=== PATIENT | male | born 1940 | race Two or more races ===

== ENCOUNTER 2021-11-03 21:43 | Inpatient (IN) | payer OTHER ==
[~2021-11-03] VITALS: Ht 167.6 cm; Wt 68.9 kg
--- NOTE | 2021-11-03 21:50 | NUR ---
EMT AT BEDSIDE FOR EKG.
--- NOTE | 2021-11-03 21:55 | NUR ---
MRSA SWAB COLLECTED AND SENT TO LAB.
--- NOTE | 2021-11-03 21:55 | NUR ---
PATIENT'S BELONGINGS LIST DONE.
--- NOTE | 2021-11-03 21:55 | NUR ---
[id number]. MORE ALTERED THAT USUAL PER FAMILY. NOTED 102.7 FEVER ON HD, LAST SESSION TODAY. REPORTED 89% ON RA. PATIENT PLACED IN BED 06 ON MONITOR AND POX. PATIENT ON NASAL CANULA 4L.
[2021-11-03] MEDS ORDERED: ACETAMINOPHEN ES 500 MG TABLET PO ONE (22:00)
[2021-11-03] MEDS ORDERED: PIPERACILLIN /TAZOBACTAM 3.375 G in IV D5W 50 ML IV ONE (22:00)
[2021-11-03] MEDS ORDERED: VANCOMYCIN 1 GM in IV D5W 250 ML IV ONE (22:00)
[2021-11-03] MEDS ORDERED: IV NS 0.9% 500 ML BAG IV ONE (22:00)
[2021-11-03] MEDS ORDERED: ACETAMINOPHEN ES 500 MG TABLET ONE ×2 (22:00→22:02)
[2021-11-03] MEDS ORDERED: PIPERACILLIN /TAZOBACTAM 3.375 G VIAL IV ONE (22:02)
[2021-11-03] MEDS ORDERED: VANCOMYCIN 1 GM VIAL ONE (22:02)
--- NOTE | 2021-11-03 22:12 | NUR ---
BLOOD AND CULTURES DONE AND SENT TO LAB
--- NOTE | 2021-11-03 22:41 | NUR ---
PT KEPT COMFORTABLE. VSS. TEMP RECHECKED 101, COOLING MEASURES APPLIED AGAIN.
[2021-11-03 22:42] LABS: LYMPHOCYTES # (AUTO) 0.3 K/uL (0.8-4.8); MONOCYTES # (AUTO) 0.4 K/uL (0.1-1.30); PLATELET COUNT (AUTO) 82 K/uL (150-450)
[2021-11-03 22:51] LABS: BASOPHILS % (AUTO) 0.1 % (0.0-2.0); EOSINOPHILS % (AUTO) 0.3 % (0.0-6.0); HEMATOCRIT 30 % (39-51); LYMPHOCYTES % (AUTO) 8.2 % (20.0-44.0); MEAN CORPUSCULAR HGB CONC 34 g/dl (31.0-36.0); MEAN CORPUSCULAR VOLUME 94 fL (80-96); MONOCYTES % (AUTO) 10.7 % (2.0-12.0); NEUTROPHILS % (AUTO) 80.7 % (43.0-81.0); WHITE BLOOD COUNT (AUTO) 3.8 K/uL (4.3-11.0)
[2021-11-03 23:03] LABS: CALCIUM, SERUM 9.4 mg/dL (8.5-10.1); CARBON DIOXIDE 33 mmol/L (21-32); CHLORIDE 98 mmol/L (98-107); CREATININE 4.7 mg/dL (0.6-1.3); GLUCOSE 191 mg/dL (74-106); POTASSIUM 3.2 mmol/L (3.5-5.1); SODIUM SERUM 137 mmol/L (136-145); UREA NITROGEN, BLOOD 19 mg/dL (7-18)
[2021-11-03 23:15] LABS: ALANINE AMINOTRANSFERASE 28 U/L (12-78); ALBUMIN 2.9 g/dL (3.4-5.0); ALKALINE PHOSPHATASE 131 U/L (46-116); ASPARTATE AMINOTRANSFERASE 49 U/L (15-37); BILIRUBIN,DIRECT 0.6 mg/dL (0.0-0.2); BILIRUBIN,TOTAL 1.2 mg/dL (0.2-1.0); TOTAL PROTEIN, SERUM 6.2 g/dL (6.4-8.2)
[2021-11-04] MEDS ORDERED: Z GUARD REMEDY 4 OZ OINT TP PRN
[2021-11-04] MEDS ORDERED: ZOLPIDEM TARTRATE 5 MG TABLET PO PRN
[2021-11-04] MEDS ORDERED: ACETAMINOPHEN 325 MG TABLET PO PRN
[2021-11-04] MEDS ORDERED: MAG HYDROX/AL HYDROX/SIMETH 30 ML UDC PO PRN
[2021-11-04] MEDS ORDERED: IV 1/2NS 1000 ML 1,000 ML IV PRN
[2021-11-04] MEDS ORDERED: ONDANSETRON HCL/PF 4 MG/2 ML VIAL IVP PRN
[2021-11-04] MEDS ORDERED: MAGNESIUM HYDROXIDE 30 ML UDC PO PRN
[2021-11-04 04:32] LABS: BASOPHILS % (AUTO) 0.3 % (0.0-2.0); EOSINOPHILS % (AUTO) 0.1 % (0.0-6.0); HEMATOCRIT 31 % (39-51); HEMOGLOBIN 10.1 g/dL (13.5-17.5); LYMPHOCYTES # (AUTO) 0.7 K/uL (0.8-4.8); LYMPHOCYTES % (AUTO) 16.2 % (20.0-44.0); MEAN CORPUSCULAR HGB CONC 33 g/dl (31.0-36.0); MEAN CORPUSCULAR VOLUME 94 fL (80-96); MONOCYTES # (AUTO) 0.6 K/uL (0.1-1.30); MONOCYTES % (AUTO) 15.6 % (2.0-12.0); NEUTROPHILS # (AUTO) 2.8 K/uL (1.8-8.9); NEUTROPHILS % (AUTO) 67.8 % (43.0-81.0); PLATELET COUNT (AUTO) 83 K/uL (150-450); RED BLOOD CELL COUNT(AUTO) 3.25 MIL/uL (4.5-6.0); WHITE BLOOD COUNT (AUTO) 4.1 K/uL (4.3-11.0)
[2021-11-04 04:52] LABS: CALCIUM, SERUM 8.9 mg/dL (8.5-10.1); CARBON DIOXIDE 30 mmol/L (21-32); CHLORIDE 100 mmol/L (98-107); CREATININE 5.1 mg/dL (0.6-1.3); GLUCOSE 132 mg/dL (74-106); MAGNESIUM 2.5 mg/dL (1.8-2.4); PHOSPHORUS 3.9 mg/dL (2.5-4.9); POTASSIUM 3.2 mmol/L (3.5-5.1); SODIUM SERUM 136 mmol/L (136-145); UREA NITROGEN, BLOOD 22 mg/dL (7-18)
[2021-11-04] MEDS ORDERED: ZOSYN IVPB 2.25 G in IV D5W 50ml IV ONE (05:00)
[2021-11-04 05:03] LABS: THYROID STIMULATING HORMONE 1.744 uIU/mL (0.358-3.74)
--- NOTE | 2021-11-04 05:07 | NUR ---
TROP 2.708
--- NOTE | 2021-11-04 05:13 | NUR ---
PAGED DR QUIROGA TO RELAY THE HIGH TROPONIN
[2021-11-04] MEDS ORDERED: HEPARIN INFUSION/D5W 500 ML IV ONE (05:28)
[2021-11-04] MEDS ORDERED: HEPARIN SODIUM, PORCINE 5000 UNITS/1 ML VIAL ONE (05:34)
[2021-11-04] MEDS: HEPARIN INFUSION/D5W 500 ML IV PRN ×2 (05:45→18:32)
[2021-11-04] MEDS ORDERED: PIPERACILLIN /TAZOBACTAM 2.25 G VIAL IV ONE (05:59)
[2021-11-04] MEDS ORDERED: HEPARIN SODIUM,PORCINE/PF 50 UNIT/5 ML DISP.SYRIN IV ONE (06:00)
--- NOTE | 2021-11-04 06:04 | NUR ---
BED 114-2
--- NOTE | 2021-11-04 07:41 | NUR ---
REPORT GIVEN TO NURSE IZAGUIRRE FOR MERCEDES
--- NOTE | 2021-11-04 08:30 | NUR ---
SPOKE TO DAUGHTER KALEB [phone]
--- NOTE | 2021-11-04 08:30 | NUR ---
THE PATIENT IS TRANSFERED TO ROOM 114-2 IN STABLE CONDITION AND PER ACLS POLICY
[2021-11-04] MEDS ORDERED: VANCOMYCIN 500 MG in IV D5W 100 ML IV PRN (09:00)
[2021-11-04] MEDS ORDERED: CARV12.52 PO (09:01)
[2021-11-04] MEDS ORDERED: AMLO-213 PO (09:01)
[2021-11-04] MEDS ORDERED: LOVA40TA2 PO (09:01)
[2021-11-04] MEDS ORDERED: BRIM5DRO3 EACHEYE (09:01)
[2021-11-04] MEDS ORDERED: DONE5TAB34 PO (09:01)
[2021-11-04] MEDS ORDERED: MIRT-91 PO (09:01)
[2021-11-04] MEDS ORDERED: INSU100I30 SQ ×2 (09:01)
[2021-11-04] MEDS ORDERED: DORZ10DR10 EACHEYE (09:01)
[2021-11-04] MEDS ORDERED: LOSA50TA39 PO (09:01)
[2021-11-04] MEDS ORDERED: BIMA2.5D5 EACHEYE (09:01)
[2021-11-04] MEDS ORDERED: HYDR-4077 PO (09:01)
[2021-11-04] MEDS ORDERED: APIX2.5T PO (09:01)
[2021-11-04 09:06] LABS: BAND % (MANUAL) 10 % (0.0-5.0); LYMPHOCYTES % (MANUAL) 6 % (16-48); MONOCYTES % (MANUAL) 11 % (0-11.0); NEUTROPHILS % (MANUAL) 73 (42-76)
[2021-11-04 09:15] LABS: BAND % (MANUAL) 12 % (0.0-5.0); LYMPHOCYTES % (MANUAL) 11 % (16-48); NEUTROPHILS % (MANUAL) 62 (42-76)
[2021-11-04 09:16] LABS: EOSINOPHILS % (MANUAL) 1 % (0-4); MONOCYTES % (MANUAL) 14 % (0-11.0)
[2021-11-04] MEDS: PANTOPRAZOLE 40 MG TABLET.DR PO SCH (09:26)
[2021-11-04] MEDS: DEXAMETHASONE SOD PHOSPHATE 10 MG/ML VIAL IV SCH (09:26)
[2021-11-04] MEDS: ASPIRIN EC 81 MG TABLET.DR PO SCH (09:26)
[2021-11-04 12:00] VITALS: BP 117/66
--- NOTE | 2021-11-04 12:21 | NUR ---
ADMISSION NOTES PT CAME FROM ER. PT IS A/O X 1, CONFUSED, HISTORY OF CKD, DEMENTIA AND ANXIETY. PT CAME TO UNIT AT APPROXIMATELY 0900. PT ON RA SATING 95%. NO SIGNS OF LABORED BREATHING. PT ON HEPARIN DRIP. IV ACCESS AT L WRIST 18G, AND L AC 18G. ALL ISOLATION PRECAUTIONS IN PLACE. ALL SAFETY MEASURES IN PLACE. BED IN LOWEST LOCKED POSITION, SIDE RAILS UP X 3, CALL LIGHT WITHIN REACH. WILL CONTINUE TO MONITOR THROUGHOUT SHIFT.
--- NOTE | 2021-11-04 12:30 | NUR ---
RN NOTE DR. CHANG NOTIFIED FOR PTT REDRAW, CONTINUE HEPARIN DRIP AT CURRENT DOSE UNTIL PTT REDRAW RESULT RESULTED.
[2021-11-04] MEDS ORDERED: PIPERACILLIN /TAZOBACTAM 2.25 G in IV D5W 50 ML IV SCH (13:00)
--- NOTE | 2021-11-04 15:58 | NUR ---
RN NOTES HLED HEPARIN PER MD ORDER. WILL CHECK PTT AT 1700. WILL RESTART HEPARIN PER PROTOCOL.
[2021-11-04 16:00] VITALS: BP 111/33
[2021-11-04] MEDS: hydrALAZINE HCL 50 MG TABLET PO SCH (17:00)
[2021-11-04] MEDS: CARVEDILOL 12.5 MG TABLET PO SCH (17:00)
[2021-11-04] MEDS: DORZOLAMIDE OPTH 2% 10 ML BOTTLE EACHEYE SCH (17:49)
[2021-11-04] MEDS: BRIMONIDINE TARTRATE OPHT SOLN 5 ML BOTTLE EACHEYE SCH (17:49)
[2021-11-04] MEDS: ATORVASTATIN 10 MG TABLET PO SCH (17:54)
[2021-11-04] MEDS ORDERED: CEFEPIME 2 GM in IV D5W 100 ML IV ONE (18:00)
[2021-11-04] MEDS: INSULIN GLARGINE, 100 UNIT/ML CARTRIDGE SQ SCH (18:09)
--- NOTE | 2021-11-04 18:37 | NUR ---
RN NOTE PTT OF 49.0, DECREASE DOSE BY 200UNIT/HR, AND PTT AFTER 6 HRS.
--- NOTE | 2021-11-04 19:27 | NUR ---
RN CLOSING NOTES PT IS RESTING IN BED, NO SIGNS OF DISTRESS OR SOB. PT IS A/O X 2-3. IV ACCESS ON LA AC AND L WRIST FLUSHING WELL AND PATENT. ALL SAFETY MEASURES IN PLACE, BED IN LOWEST LOCKED POSITION, SIDE RAILS UP X3, CALL LIGHT WITHIN REACH. WILL ENDORSE TO GAS APPLIANCE SERVICER NURSE FOR MERCEDES.
--- NOTE | 2021-11-04 19:55 | NUR ---
RN OPENING NOTES PT IS RESTING IN BED, NO SIGNS OF DISTRESS OR SOB. PT IS A/O X 2-3. IV ACCESS ON LA AC AND L WRIST FLUSHING WELL AND PATENT. PATIENT ON TELE MONITOR HR OF 60 SR. PATIENT ON O2 3L VIA NC SAT 100. PATIENT ON HEPARIN DRIP, RUNNING 844 UNITS/HR. NEXT LAB DRAW FOR APPT IS SCHEDULED AT 0100. WILL CONTINUE TO MONITOR PATIENT ON DRIP. ALL SAFETY MEASURES IN PLACE, BED IN LOWEST LOCKED POSITION, SIDE RAILS UP X3, CALL LIGHT WITHIN REACH.
[2021-11-04 20:00] VITALS: BP 128/34
[2021-11-04] MEDS: MIRTAZAPINE 15 MG TABLET PO SCH (21:45)
[2021-11-04] MEDS: LATANOPROST EYE DROP 0.005% 2.5 ML BOTTLE OP SCH (21:46)
[2021-11-05] VITALS: BP 134/64
--- NOTE | 2021-11-05 02:19 | NUR ---
MADAN FAIR FROM LAB CALLED TO REPORT A CRITICAL LAB VALUE OF 82.6 FOR APTT. PER PROTOCOL WILL HOLD HEPARIN DRIP FOR 30 MINS, AND WILL DECREASE THE INFUSION RATE BY 150 UNITS/HR.
--- NOTE | 2021-11-05 03:00 | NUR ---
RN NOTE HEPARIN STARTED AGAIN PER PROTOCOL AT A NEW RATE OF 727 . WENT DOWN 150UNITS FROM PREVIOUS APPT DRAW PER PROTOCOL. NEW LABS ORDERED FOR 0900.
--- NOTE | 2021-11-05 03:05 | NUR ---
RN NOTE NEW PTT ORDER PUT IN FOR 0900.
[2021-11-05 04:00] VITALS: BP 156/75
--- NOTE | 2021-11-05 07:00 | NUR ---
RN NOTE PATIENT KEPT DRY AND CLEAN , NO SIG CHANGES THROUGHOUT THE NIGHT. PATIENTS HEPARIN DRIP RUNNING AT 722 UNITS/HR AT THIS TIME. ENDORSED PLAN OF CARE TO AM NURSE.
[2021-11-05 07:25] LABS: BASOPHILS % (AUTO) 0.1 % (0.0-2.0); HEMATOCRIT 32 % (39-51); HEMOGLOBIN 10.7 g/dL (13.5-17.5); LYMPHOCYTES # (AUTO) 0.7 K/uL (0.8-4.8); LYMPHOCYTES % (AUTO) 9.5 % (20.0-44.0); MEAN CORPUSCULAR HGB CONC 33 g/dl (31.0-36.0); MEAN CORPUSCULAR VOLUME 94 fL (80-96); MONOCYTES # (AUTO) 0.7 K/uL (0.1-1.30); MONOCYTES % (AUTO) 8.6 % (2.0-12.0); NEUTROPHILS # (AUTO) 6.4 K/uL (1.8-8.9); NEUTROPHILS % (AUTO) 81.8 % (43.0-81.0); PLATELET COUNT (AUTO) 106 K/uL (150-450); RED BLOOD CELL COUNT(AUTO) 3.45 MIL/uL (4.5-6.0); WHITE BLOOD COUNT (AUTO) 7.8 K/uL (4.3-11.0)
[2021-11-05] MEDS: PANTOPRAZOLE 40 MG TABLET.DR PO SCH (07:54)
[2021-11-05 08:00] VITALS: BP 163/69
[2021-11-05 08:18] LABS: CALCIUM, SERUM 8.7 mg/dL (8.5-10.1); CARBON DIOXIDE 25 mmol/L (21-32); CHLORIDE 97 mmol/L (98-107); CREATININE 6.6 mg/dL (0.6-1.3); GLUCOSE 219 mg/dL (74-106); SODIUM SERUM 136 mmol/L (136-145); UREA NITROGEN, BLOOD 35 mg/dL (7-18)
[2021-11-05] MEDS: DORZOLAMIDE OPTH 2% 10 ML BOTTLE EACHEYE SCH ×2 (09:47→16:56)
[2021-11-05] MEDS: BRIMONIDINE TARTRATE OPHT SOLN 5 ML BOTTLE EACHEYE SCH ×2 (09:47→16:55)
[2021-11-05] MEDS: DEXAMETHASONE SOD PHOSPHATE 10 MG/ML VIAL IV SCH (09:47)
[2021-11-05] MEDS: LOSARTAN POTASSIUM 50 MG TABLET PO SCH (09:48)
[2021-11-05] MEDS: CARVEDILOL 12.5 MG TABLET PO SCH ×2 (09:48→16:55)
[2021-11-05] MEDS: AMLODIPINE BESYLATE 10 MG TABLET PO SCH (09:49)
[2021-11-05] MEDS: ASPIRIN EC 81 MG TABLET.DR PO SCH (09:49)
[2021-11-05] MEDS: DONEPEZIL 5 MG TABLET PO SCH (09:49)
[2021-11-05] MEDS: hydrALAZINE HCL 50 MG TABLET PO SCH ×2 (09:52→16:54)
[2021-11-05] MEDS: INSULIN GLARGINE, 100 UNIT/ML CARTRIDGE SQ SCH ×2 (10:27→18:06)
[2021-11-05 12:00] VITALS: BP 148/36
[2021-11-05 16:00] VITALS: BP 126/54
[2021-11-05] MEDS: HEPARIN INFUSION/D5W 500 ML IV PRN (17:21)
[2021-11-05] MEDS: CEFEPIME 1 GM in IV D5W 50 ML IV SCH (17:53)
[2021-11-05] MEDS: ATORVASTATIN 10 MG TABLET PO SCH (17:53)
--- NOTE | 2021-11-05 19:08 | NUR ---
RN CLOSING NOTES PT IS RESTING IN BED, A/O X 3 POLISH SPEAKING. PT ON 3L NC SATING AT 99%. PT HAS NEW IV ACCESS AT L FA 18G. FLUSHING WELL AND PATENT. PTT IS 56, NO CHANGE IN DRIP RATE PER PROTOCOL. PTT ORDER FOR 9AM. CURRENTLY RUNNING 727. PT TOLERATED ALL INTERVENTIONS AND TREATMENTS WELL. ALL SAFETY MEASURES IN PLACE, BED IN LOWEST LOCKED POSITION, SR UP X 3, CALL LIGHT WITHIN REACH. WILL ENDORSE TO SENIOR COLDFUSION DEVELOPER NURSE FOR MERCEDES.
--- NOTE | 2021-11-05 19:40 | NUR ---
Dialysis Notes: Called Dr Alejandro regarding pt HD treatment to be done in am, labs reviewed. OK to do pt in am 1st shift.
--- NOTE | 2021-11-05 19:45 | NUR ---
RN NOTES: DIALYSIS CALLED, WILL DO DIALYSIS EARLY IN THE MORNING. WILL CONTINUE TO MONITOR
[2021-11-05 20:00] VITALS: BP 132/59
[2021-11-05] MEDS: MIRTAZAPINE 15 MG TABLET PO SCH (23:04)
[2021-11-05] MEDS: LATANOPROST EYE DROP 0.005% 2.5 ML BOTTLE OP SCH (23:29)
[2021-11-06] VITALS: BP 137/61
--- NOTE | 2021-11-06 03:42 | NUR ---
RN NOTES: PT ON AND OFF REMOVING HIS LEADS FOR CARDIAC MONITORING. APPLIED SEVERAL TIMES BUT STILL REMOVING. PT'S VITAL STABLE. MADE AWARE BAMBI GAUTAM. WILL CONTINUE TO MONITOR.
[2021-11-06 04:00] VITALS: BP 134/72
--- NOTE | 2021-11-06 06:05 | NUR ---
RN CLOSING NOTES PT IN BED, AWAKE, A/O X 2-3 AND VERBALLY RESPONSIVE. MAORI SPEAKING. ON 3L VIA N/C, O2 SAT 99%. PATIENT REMOVED HIS BOTH IV SITE INCLUDING HIS MIDLINE ON LUIS A. NOTED SCANT AMOUNT OF DRY BLEEDING BUT ACTIVE BLEEDING NOTED. NOTIFIED DR. JORGE LUIS LACY THAT REMOVED HIS IV ACCESS AND PT IS ON HEPARIN DRIP. ORDER TO INSERT ANOTHER MIDLINE AND RESTRAINT ORDER. NOTED AND CARRIED OUT. NO C/O PAIN OR DISCOMFORT. NO ACUTE DISTRESS. ALL SAFETY MEASURES IN PLACE, BED IN LOWEST LOCKED POSITION, SIDE RAILS UP X3, PLACE CALL WITHIN REACH. WILL ENDORSE TO MORNING SHIFT NURSE
[2021-11-06 06:56] LABS: BASOPHILS % (AUTO) 0.2 % (0.0-2.0); HEMATOCRIT 30 % (39-51); LYMPHOCYTES # (AUTO) 0.6 K/uL (0.8-4.8); MEAN CORPUSCULAR HGB CONC 34 g/dl (31.0-36.0); MEAN CORPUSCULAR VOLUME 93 fL (80-96); MONOCYTES # (AUTO) 0.7 K/uL (0.1-1.30); MONOCYTES % (AUTO) 4.7 % (2.0-12.0); NEUTROPHILS # (AUTO) 13.1 K/uL (1.8-8.9); NEUTROPHILS % (AUTO) 91.1 % (43.0-81.0); PLATELET COUNT (AUTO) 116 K/uL (150-450); WHITE BLOOD COUNT (AUTO) 14.4 K/uL (4.3-11.0)
[2021-11-06 06:57] LABS: CALCIUM, SERUM 7.9 mg/dL (8.5-10.1); CARBON DIOXIDE 28 mmol/L (21-32); CHLORIDE 93 mmol/L (98-107); CREATININE 7.2 mg/dL (0.6-1.3); GLUCOSE 142 mg/dL (74-106); POTASSIUM 3.8 mmol/L (3.5-5.1); SODIUM SERUM 132 mmol/L (136-145); UREA NITROGEN, BLOOD 44 mg/dL (7-18)
[2021-11-06 08:00] VITALS: BP 157/65
[2021-11-06] MEDS: BRIMONIDINE TARTRATE OPHT SOLN 5 ML BOTTLE EACHEYE SCH ×2 (08:22→17:41)
[2021-11-06] MEDS: DORZOLAMIDE OPTH 2% 10 ML BOTTLE EACHEYE SCH ×2 (08:22→17:41)
[2021-11-06] MEDS: hydrALAZINE HCL 50 MG TABLET PO SCH ×2 (09:00→17:40)
[2021-11-06] MEDS: AMLODIPINE BESYLATE 10 MG TABLET PO SCH (09:00)
[2021-11-06] MEDS: CARVEDILOL 12.5 MG TABLET PO SCH ×2 (09:00→17:40)
[2021-11-06] MEDS: LOSARTAN POTASSIUM 50 MG TABLET PO SCH (09:00)
--- NOTE | 2021-11-06 10:07 | NUR ---
RN NOTE PTT 0900 36.8, PER HOSPITAL PROTOCOOL, INCREASE HEPARIN DRIP UP TO 150UNITS. AND WILL CONTINUE TO INFUSE WITH 877U. AND R/C PTT 1T 1600.
[2021-11-06 12:00] VITALS: BP 176/83
[2021-11-06] MEDS: DONEPEZIL 5 MG TABLET PO SCH (12:52)
[2021-11-06] MEDS: DEXAMETHASONE SOD PHOSPHATE 10 MG/ML VIAL IV SCH (12:52)
[2021-11-06] MEDS: ASPIRIN EC 81 MG TABLET.DR PO SCH (12:52)
[2021-11-06] MEDS: INSULIN GLARGINE, 100 UNIT/ML CARTRIDGE SQ SCH ×2 (13:20→18:18)
[2021-11-06] MEDS: PANTOPRAZOLE 40 MG TABLET.DR PO SCH (13:45)
[2021-11-06 16:00] VITALS: BP 176/83
--- NOTE | 2021-11-06 16:47 | NUR ---
RN NOTE RECEIVED T.O. FROM NEPHWALKER HALLMAN TO D/C IVF.10/12 NS. ORDER CARRIED OUT.
[2021-11-06] MEDS: ATORVASTATIN 10 MG TABLET PO SCH (17:39)
[2021-11-06] MEDS: CEFEPIME 1 GM in IV D5W 50 ML IV SCH (17:41)
--- NOTE | 2021-11-06 19:25 | NUR ---
RN OPENING NOTES PATIENT IN BED, AWAKE, A/O X 2-3 AND VERBALLY RESPONSIVE. SOLOMON ISLANDER SPEAKING. ON 3L VIA N/C AND TOLERATED WELL. IV ACCESS ON LUIS A MIDLINE #18G AND LT HAND #24G INTACT AND PATENT. NO S/S OF INFILTRATIONS. ON HEPARIN DRIP 1027 UNITS/HR/ 20.54MLS/HR. BILATERAL RESTRAINT IN PLACE. NO C/O PAIN OR DISCOMFORT. NO ACUTE DISTRESS. ALL SAFETY MEASURES IN PLACE, BED IN LOWEST LOCKED POSITION, SIDE RAILS UP X3, PLACE CALL WITHIN REACH. WILL CONTINUE TO MONITOR
[2021-11-06 20:00] VITALS: BP 155/69
[2021-11-06] MEDS: LATANOPROST EYE DROP 0.005% 2.5 ML BOTTLE OP SCH (22:43)
[2021-11-06] MEDS: MIRTAZAPINE 15 MG TABLET PO SCH (22:44)
--- NOTE | 2021-11-06 23:20 | NUR ---
RN NOTES: RECEIVED APTT RESULTS 68.8. PER PROTOCOL NO NEED TO CHANGE THE RATE. WILL CONTINUE TO MONITOR FOR ANY CHANGES
--- NOTE | 2021-11-06 23:27 | NUR ---
RN NOTES: PT C/O UNABLE TO SLEEP. AMBIEN 5MG TAB GIVEN PER PRN ORDER. WILL CONTINUE TO MONITOR
[2021-11-07] VITALS (8 sets, daily range): BP systolic 98–154; BP diastolic 41–70
[2021-11-07] MEDS: HEPARIN INFUSION/D5W 500 ML IV PRN (03:19)
--- NOTE | 2021-11-07 06:26 | NUR ---
RN CLOSING NOTES PATIENT IN BED SLEEPING, BUT EASILY AROUSABLE, A/O X 2-3 AND VERBALLY RESPONSIVE. SINHALA SPEAKING. ON 3L VIA N/C, O2 SAT 94% AND TOLERATED WELL. IV ACCESS ON LUIS A MIDLINE #18G AND LT HAND #24G INTACT AND PATENT. NO S/S OF INFILTRATIONS. ON HEPARIN DRIP 1027 UNITS/HR/ 20.54MLS/HR. BILATERAL RESTRAINT IN PLACE. Q 2HOURS RELEASED FOR CIRCULATIONS. NO C/O PAIN OR DISCOMFORT. NO ACUTE DISTRESS. ALL DUE MEDS GIVEN ORDER. ALL SAFETY MEASURES IN PLACE, BED IN LOWEST LOCKED POSITION, SIDE RAILS UP X3, PLACE CALL WITHIN REACH. WILL ENDORSE TO MORNING SHIFT NURSE.
[2021-11-07 07:31] LABS: BASOPHILS % (AUTO) 0.2 % (0.0-2.0); HEMATOCRIT 31 % (39-51); HEMOGLOBIN 10.2 g/dL (13.5-17.5); LYMPHOCYTES # (AUTO) 0.3 K/uL (0.8-4.8); LYMPHOCYTES % (AUTO) 2.9 % (20.0-44.0); MEAN CORPUSCULAR HGB CONC 33 g/dl (31.0-36.0); MEAN CORPUSCULAR VOLUME 93 fL (80-96); MONOCYTES # (AUTO) 0.6 K/uL (0.1-1.30); MONOCYTES % (AUTO) 5.3 % (2.0-12.0); NEUTROPHILS # (AUTO) 9.7 K/uL (1.8-8.9); NEUTROPHILS % (AUTO) 91.6 % (43.0-81.0); PLATELET COUNT (AUTO) 125 K/uL (150-450); RED BLOOD CELL COUNT(AUTO) 3.29 MIL/uL (4.5-6.0); WHITE BLOOD COUNT (AUTO) 10.6 K/uL (4.3-11.0)
[2021-11-07 09:03] LABS: CALCIUM, SERUM 7.6 mg/dL (8.5-10.1); CARBON DIOXIDE 30 mmol/L (21-32); CHLORIDE 93 mmol/L (98-107); CREATININE 6.1 mg/dL (0.6-1.3); GLUCOSE 109 mg/dL (74-106); POTASSIUM 3.1 mmol/L (3.5-5.1); SODIUM SERUM 131 mmol/L (136-145); UREA NITROGEN, BLOOD 40 mg/dL (7-18)
--- NOTE | 2021-11-07 09:21 | NUR ---
RN NOTE PTT 84.8 ON 0600.HEPARIN DRIP HELD FOR 30 MINS AND REDUCED TO 150UNITS/HR. CURRENT DOSE 877UNITS. PTT R/C AT 1500.
[2021-11-07] MEDS: DONEPEZIL 5 MG TABLET PO SCH (09:59)
[2021-11-07] MEDS: ASPIRIN EC 81 MG TABLET.DR PO SCH (10:00)
[2021-11-07] MEDS: hydrALAZINE HCL 50 MG TABLET PO SCH ×2 (10:00→17:00)
[2021-11-07] MEDS: DEXAMETHASONE SOD PHOSPHATE 10 MG/ML VIAL IV SCH (10:01)
[2021-11-07] MEDS: AMLODIPINE BESYLATE 10 MG TABLET PO SCH (10:01)
[2021-11-07] MEDS: CARVEDILOL 12.5 MG TABLET PO SCH ×2 (10:01→17:00)
[2021-11-07] MEDS: PANTOPRAZOLE 40 MG TABLET.DR PO SCH (10:03)
[2021-11-07] MEDS: LOSARTAN POTASSIUM 50 MG TABLET PO SCH (10:04)
[2021-11-07] MEDS: INSULIN GLARGINE, 100 UNIT/ML CARTRIDGE SQ SCH ×2 (10:05→17:42)
[2021-11-07] MEDS: DORZOLAMIDE OPTH 2% 10 ML BOTTLE EACHEYE SCH ×2 (10:19→17:47)
[2021-11-07] MEDS: BRIMONIDINE TARTRATE OPHT SOLN 5 ML BOTTLE EACHEYE SCH ×2 (10:19→17:47)
--- NOTE | 2021-11-07 17:27 | NUR ---
RN NOTE PTT RESULT FOR 1500-59.9. NO CHANGES TO DOSE PER PROTOCOL. WILL R/C PTT IN AM.
[2021-11-07] MEDS: ATORVASTATIN 10 MG TABLET PO SCH (17:40)
[2021-11-07] MEDS: CEFEPIME 1 GM in IV D5W 50 ML IV SCH (18:40)
--- NOTE | 2021-11-07 19:15 | NUR ---
RN OPENING NOTES PATIENT RECEIVED IN BED, ALERT, ORIENTED X 2-3, RESPIRATORY EVEN AND UNLABORED. ON NASAL CANULA @ 4LPM NO SOB NOTED, NOT IN DISTRESS. PATIENT NOTED WITH IV ACCES ON LUIS A MIDLINE #18 AND LT. HAND #24 INTACT AND PATENT, FLUSHED WITH NS. NO S/S OF INFILTRATIONS. [facility] SITE FOR HD ACCESS. NO BLEEDING NOTED. NO FACIAL GRIMACING NOTED. ALL SAFETY MEASURE IN PLACE. BED IN LOW POSITION AND LOCKED. SIDE RAILS X3, PLACE CALL LIGHT WITH IN REACH.
[2021-11-07] MEDS: LATANOPROST EYE DROP 0.005% 2.5 ML BOTTLE OP SCH (22:38)
[2021-11-07] MEDS: MIRTAZAPINE 15 MG TABLET PO SCH (22:38)
[2021-11-07] MEDS: APIXABAN 2.5 MG TABLET PO SCH (23:01)
[2021-11-08] VITALS: BP 94/52
--- NOTE | 2021-11-08 02:00 | NUR ---
RN NOTES WHEN DOING ROUNDS, PATIENT NOTED WITH DISLODGED IV ACCESS ON LT. HAND, WITH MINIMAL BLEEDING NOTED, DENIES PAIN, NO FACIAL GRIMACING NOTED. CONTINUE TO MONITOR.
[2021-11-08 04:00] VITALS: BP 107/63
[2021-11-08 07:21] LABS: BASOPHILS % (AUTO) 0.1 % (0.0-2.0); HEMATOCRIT 26 % (39-51); HEMOGLOBIN 8.7 g/dL (13.5-17.5); LYMPHOCYTES # (AUTO) 0.4 K/uL (0.8-4.8); LYMPHOCYTES % (AUTO) 3.4 % (20.0-44.0); MEAN CORPUSCULAR HGB CONC 34 g/dl (31.0-36.0); MEAN CORPUSCULAR VOLUME 93 fL (80-96); MONOCYTES # (AUTO) 0.8 K/uL (0.1-1.30); MONOCYTES % (AUTO) 6.4 % (2.0-12.0); NEUTROPHILS # (AUTO) 11.3 K/uL (1.8-8.9); NEUTROPHILS % (AUTO) 90.1 % (43.0-81.0); PLATELET COUNT (AUTO) 122 K/uL (150-450); RED BLOOD CELL COUNT(AUTO) 2.73 MIL/uL (4.5-6.0); WHITE BLOOD COUNT (AUTO) 12.5 K/uL (4.3-11.0)
[2021-11-08 07:30] LABS: CALCIUM, SERUM 7.5 mg/dL (8.5-10.1); CARBON DIOXIDE 28 mmol/L (21-32); CHLORIDE 91 mmol/L (98-107); CREATININE 7.2 mg/dL (0.6-1.3); GLUCOSE 124 mg/dL (74-106); POTASSIUM 3.5 mmol/L (3.5-5.1); SODIUM SERUM 129 mmol/L (136-145); UREA NITROGEN, BLOOD 49 mg/dL (7-18)
--- NOTE | 2021-11-08 07:30 | NUR ---
RN NOTE PT RESTING UPON ASSESSMENT. PT BREATHING UNLABORED. PT ON 4LPM 02 VIA NASAL CANNULA. TOLERATING WELL. O2 SAT 100%. NO SOB NOTED. PT IV ACCESS LUIS A MIDLINE. BLEEDING NOTED. [facility] ACCESS DIALYSIS SITE NOTED. BED IN LOWEST POSITION AND WHEELS LOCKED IN PLACE. ALL SAFETY MEASURES NOTED. WILL CONTINUE TO MONITOR.
[2021-11-08 08:00] VITALS: BP 114/83
[2021-11-08] MEDS: CARVEDILOL 12.5 MG TABLET PO SCH ×2 (09:00→17:18)
[2021-11-08] MEDS: hydrALAZINE HCL 50 MG TABLET PO SCH ×2 (09:00→17:19)
[2021-11-08] MEDS: AMLODIPINE BESYLATE 10 MG TABLET PO SCH (09:00)
[2021-11-08] MEDS: LOSARTAN POTASSIUM 50 MG TABLET PO SCH (09:00)
[2021-11-08 12:00] VITALS: BP 138/60
[2021-11-08] MEDS: DEXAMETHASONE SOD PHOSPHATE 10 MG/ML VIAL IV SCH (12:40)
[2021-11-08] MEDS: PANTOPRAZOLE 40 MG TABLET.DR PO SCH (12:40)
[2021-11-08] MEDS: DONEPEZIL 5 MG TABLET PO SCH (12:40)
[2021-11-08] MEDS: ASPIRIN EC 81 MG TABLET.DR PO SCH (12:40)
[2021-11-08] MEDS: APIXABAN 2.5 MG TABLET PO SCH ×2 (12:43→17:20)
[2021-11-08] MEDS: INSULIN GLARGINE, 100 UNIT/ML CARTRIDGE SQ SCH ×2 (12:45→13:05)
[2021-11-08] MEDS: DORZOLAMIDE OPTH 2% 10 ML BOTTLE EACHEYE SCH ×2 (12:58→17:18)
[2021-11-08] MEDS: BRIMONIDINE TARTRATE OPHT SOLN 5 ML BOTTLE EACHEYE SCH ×2 (12:58→17:18)
[2021-11-08 16:00] VITALS: BP 140/61
[2021-11-08] MEDS: ATORVASTATIN 10 MG TABLET PO SCH (17:33)
[2021-11-08] MEDS: CEFEPIME 1 GM in IV D5W 50 ML IV SCH (17:33)
--- NOTE | 2021-11-08 18:46 | NUR ---
RN NOTE PATIENT REMAIN STABLE. RESPIRATORY EVEN AND UNLABORED. ON NASAL CANULA @ 4LPM NO SOB NOTED, NOT IN DISTRESS. PATIENT WITH IV ACCES ON LUIS A MIDLINE #18 INTACT AND PATENT, FLUSHING WELL. [facility] SITE FOR HD ACCESS. NO BLEEDING NOTED. NO FACIAL GRIMACING NOTED. POST HD WITH 1L FLUIDS REMOVED. ALL DUE MEDS GIVEN ORDERED. ALL SAFETY MEASURE IN PLACE. BED IN LOW POSITION AND LOCKED. SIDE RAILS X3, PLACE CALL LIGHT WITH IN REACH.
--- NOTE | 2021-11-08 19:00 | NUR ---
RN NOTE RECEIVED PATIENT IN BED, AO X 2-3, IN NO S/SX OF ACUTE DISTRESS AT THIS TIME. SATURATION AT 100% ON 4L VIA NC, V-PACING ON THE MONITOR, HR IS 70. NOTED LUIS A MIDLINE, PATENT AND FLUSHING WELL, AND AV SHUNT AT [facility], NO S/S OF INFECTION. B SOFT WRIST RESTRAINTS IN PLACE, SKIN AND CIRCULATION WAS CHECKED, NOTED WITHIN NORMAL LIMITS. SAFETY MEASURES IMPLEMENTED. PATIENT BED ALARM IS ON. HEAD OF BED ELEVATED. BED IS LOCKED, IN LOWEST POSITION AND SIDE RAILS UP. CALL LIGHT WITHIN REACH OF THE PATIENT. WILL CONTINUE TO MONITOR AND REASSESS FOR ANY CHANGES.
[2021-11-08 20:00] VITALS: BP 121/49
[2021-11-08] MEDS ORDERED: EPOETIN ALFA (10,000 UNIT) 10,000 UNIT/ML VIAL ONE (21:14)
[2021-11-08] MEDS: MIRTAZAPINE 15 MG TABLET PO SCH (21:25)
[2021-11-08] MEDS: LATANOPROST EYE DROP 0.005% 2.5 ML BOTTLE OP SCH (21:29)
[2021-11-08] MEDS: EPOETIN ALFA (4000 UNIT) 4,000 UNIT/ML VIAL IV SCH (21:43)
[2021-11-09] VITALS: BP 122/68
[2021-11-09 04:00] VITALS: BP 112/52
[2021-11-09 08:00] VITALS: BP 145/49
--- NOTE | 2021-11-09 08:00 | NUR ---
RN NOTE PT BG LEVEL 57 @0800. GAVE ORANGE JUICE 1 HR LATER. NEW BS 109.
[2021-11-09 08:04] LABS: BASOPHILS % (AUTO) 0.4 % (0.0-2.0); EOSINOPHILS % (AUTO) 0.1 % (0.0-6.0); HEMATOCRIT 23 % (39-51); HEMOGLOBIN 7.9 g/dL (13.5-17.5); LYMPHOCYTES # (AUTO) 0.3 K/uL (0.8-4.8); LYMPHOCYTES % (AUTO) 3.9 % (20.0-44.0); MEAN CORPUSCULAR HGB CONC 34 g/dl (31.0-36.0); MEAN CORPUSCULAR VOLUME 93 fL (80-96); MONOCYTES # (AUTO) 0.8 K/uL (0.1-1.30); MONOCYTES % (AUTO) 9.6 % (2.0-12.0); NEUTROPHILS # (AUTO) 7.5 K/uL (1.8-8.9); PLATELET COUNT (AUTO) 119 K/uL (150-450); RED BLOOD CELL COUNT(AUTO) 2.49 MIL/uL (4.5-6.0); WHITE BLOOD COUNT (AUTO) 8.7 K/uL (4.3-11.0)
[2021-11-09] MEDS: PANTOPRAZOLE 40 MG TABLET.DR PO SCH (08:08)
[2021-11-09] MEDS: ASPIRIN EC 81 MG TABLET.DR PO SCH (08:08)
[2021-11-09] MEDS: DEXAMETHASONE SOD PHOSPHATE 10 MG/ML VIAL IV SCH (08:08)
[2021-11-09] MEDS: DONEPEZIL 5 MG TABLET PO SCH (08:08)
[2021-11-09] MEDS: DORZOLAMIDE OPTH 2% 10 ML BOTTLE EACHEYE SCH ×2 (08:09→17:09)
[2021-11-09] MEDS: BRIMONIDINE TARTRATE OPHT SOLN 5 ML BOTTLE EACHEYE SCH ×2 (08:09→17:08)
[2021-11-09 08:22] LABS: CALCIUM, SERUM 7.9 mg/dL (8.5-10.1); CARBON DIOXIDE 29 mmol/L (21-32); CHLORIDE 95 mmol/L (98-107); CREATININE 5.4 mg/dL (0.6-1.3); GLUCOSE 66 mg/dL (74-106); POTASSIUM 3.7 mmol/L (3.5-5.1); SODIUM SERUM 132 mmol/L (136-145); UREA NITROGEN, BLOOD 36 mg/dL (7-18)
[2021-11-09] MEDS: CARVEDILOL 12.5 MG TABLET PO SCH ×2 (08:39→16:55)
[2021-11-09] MEDS: LOSARTAN POTASSIUM 50 MG TABLET PO SCH (08:39)
[2021-11-09] MEDS: AMLODIPINE BESYLATE 10 MG TABLET PO SCH (08:40)
[2021-11-09] MEDS: hydrALAZINE HCL 50 MG TABLET PO SCH ×2 (08:40→16:54)
[2021-11-09] MEDS: APIXABAN 2.5 MG TABLET PO SCH ×2 (08:41→16:59)
[2021-11-09] MEDS: INSULIN GLARGINE, 100 UNIT/ML CARTRIDGE SQ SCH ×2 (09:00→17:38)
[2021-11-09 12:00] VITALS: BP 124/30
[2021-11-09 16:00] VITALS: BP 122/40
[2021-11-09] MEDS: CEFEPIME 1 GM in IV D5W 50 ML IV SCH (17:19)
[2021-11-09] MEDS: ATORVASTATIN 10 MG TABLET PO SCH (17:19)
--- NOTE | 2021-11-09 19:20 | NUR ---
RN NOTE PT RECEIVED IN BED. PT IS ON 2L OF O2 VIA NC SHOWING NO S/S OF RESP DISTRESS. BREATHING EVEN AND UNLABORED. PT IS ALERT AND ORIENTED X2. ON SKILLS INSTRUCTOR V-PACING. SKIN INTACT. BILATERAL SOFT WRIST RESTRAINTS NOTED. ALL PROTOCOLS INITIATED. CURRENTLY ON RENAL DIET. IV ACCESS NOTED ON LEFT UPPER ARM ML, AND RIGHT UA FISTULA NOTED. ALL SAFETY MEASURES IMPLEMENTED. WILL CONTINUE TO MONITOR AND ASSESS FOR ANY CHANGES DURING SHIFT.
[2021-11-09 20:00] VITALS: BP 92/42
[2021-11-09] MEDS: MIRTAZAPINE 15 MG TABLET PO SCH (22:19)
[2021-11-09] MEDS: LATANOPROST EYE DROP 0.005% 2.5 ML BOTTLE OP SCH (22:19)
[2021-11-10] VITALS: BP 117/75
[2021-11-10 04:00] VITALS: BP 124/33
--- NOTE | 2021-11-10 06:56 | NUR ---
RN NOTE NO CHANGES IN PT CONDITION DURING SHIFT. PT IS ON 2L OF O2 VIA NC SHOWING NO S/S OF RESP DISTRESS. BREATHING EVEN AND UNLABORED. PT IS ALERT AND ORIENTED X2. ON GLOBAL IMPLEMENTATION MANAGER V-PACING. IV ACCESS NOTED ON LEFT UPPER ARM ML, AND RIGHT UA FISTULA NOTED. ALL DUE MEDS GIVEN ORDERED. PT KEPT CLEAN AND COMFORTABLE. ALL SAFETY MEASURES IMPLEMENTED. WILL ENDORSE TO MORNING SHIFT RN FOR MERCEDES.
--- NOTE | 2021-11-10 07:36 | NUR ---
RN OPENING NOTE PT RECEIVED IN BED. PT IS ON 2L OF O2 VIA NC SHOWING NO S/S OF RESP DISTRESS. BREATHING EVEN AND UNLABORED. PT IS ALERT AND ORIENTED X2. ON CARPENTER MOLD V-PACING. SKIN INTACT. BILATERAL SOFT WRIST RESTRAINTS NOTED. ALL PROTOCOLS INITIATED. CURRENTLY ON RENAL DIET. IV ACCESS NOTED ON LEFT UPPER ARM ML, AND RIGHT UA FISTULA NOTED. ALL SAFETY MEASURES IMPLEMENTED. BED IN LOWEST LOCKED POSITION, SIDE RAILS UP X3, CALL LIGHT WITHIN REACH, WILL CONTINUE TO MONITOR THROUGHOUT SHIFT.
[2021-11-10] MEDS: PANTOPRAZOLE 40 MG TABLET.DR PO SCH (07:58)
[2021-11-10 08:00] VITALS: BP 134/47
[2021-11-10] MEDS: hydrALAZINE HCL 50 MG TABLET PO SCH ×2 (09:15→17:35)
[2021-11-10] MEDS: DONEPEZIL 5 MG TABLET PO SCH (09:16)
[2021-11-10] MEDS: LOSARTAN POTASSIUM 50 MG TABLET PO SCH (09:16)
[2021-11-10] MEDS: AMLODIPINE BESYLATE 10 MG TABLET PO SCH (09:16)
[2021-11-10] MEDS: CARVEDILOL 12.5 MG TABLET PO SCH ×2 (09:16→17:35)
[2021-11-10] MEDS: ASPIRIN EC 81 MG TABLET.DR PO SCH (09:16)
[2021-11-10] MEDS: APIXABAN 2.5 MG TABLET PO SCH ×2 (09:17→17:36)
[2021-11-10] MEDS: DEXAMETHASONE SOD PHOSPHATE 10 MG/ML VIAL IV SCH (09:17)
[2021-11-10] MEDS: DORZOLAMIDE OPTH 2% 10 ML BOTTLE EACHEYE SCH ×2 (09:18→17:29)
[2021-11-10] MEDS: BRIMONIDINE TARTRATE OPHT SOLN 5 ML BOTTLE EACHEYE SCH ×2 (09:18→17:28)
[2021-11-10] MEDS: INSULIN GLARGINE, 100 UNIT/ML CARTRIDGE SQ SCH ×2 (09:33→17:59)
--- NOTE | 2021-11-10 11:53 | NUR ---
CHARGE NURSE RN NOTES SPOKE WITH DR. ALMAZAN, PER HIM, NO NEED FOR HD POST [facility].
[2021-11-10 12:00] VITALS: BP 143/47
--- NOTE | 2021-11-10 12:30 | NUR ---
RN NOTES DR. ALMAZAN NOTIFIED ABOUT [facility], SAID OK TO SKIP DIALYSIS.
[2021-11-10] MEDS ORDERED: IOHEXOL-350 100 ML VIAL IV ONE ×2 (12:31→13:30)
[2021-11-10] MEDS ORDERED: NITROGLYCERIN 0.4 MG/TAB BOTTLE ONE (12:31)
[2021-11-10] MEDS ORDERED: METOPROLOL TARTRATE INJ 5 MG/5 ML AMPUL ONE (12:31)
[2021-11-10] MEDS ORDERED: CT SWABBABLE VALVE TRANS SET 1 EA INFUS.SET MC ONE (12:31)
[2021-11-10] MEDS ORDERED: IV NS 0.9% 250 ML IV ONE (12:32)
[2021-11-10] MEDS ORDERED: NITROGLYCERIN 0.4 MG/TAB BOTTLE SL ONE (13:30)
[2021-11-10] MEDS ORDERED: METOPROLOL TARTRATE INJ 5 MG/5 ML AMPUL IVP PRN (13:30)
--- NOTE | 2021-11-10 13:53 | NUR ---
RN NOTES PT COMPLETED [facility] APPROX AT 1330. PT RETURNED SAFELY BACK TO UNIT.
[2021-11-10 16:00] VITALS: BP 127/46
[2021-11-10] MEDS: ATORVASTATIN 10 MG TABLET PO SCH (17:35)
[2021-11-10] MEDS: CEFEPIME 1 GM in IV D5W 50 ML IV SCH (17:37)
--- NOTE | 2021-11-10 19:33 | NUR ---
RN CLOSING NOTES PATIENT REMAIN STABLE THROUGH OUT THE SHIFT, RESPIRATORY EVEN AND UNLABORED. ON NASAL CANULA @ 4LPM NO SOB NOTED, NOT IN DISTRESS. PATIENT NOTED WITH IV ACCES ON LUIS A MIDLINE #18 INTACT AND PATENT, FLUSHED WITH NS. NO S/S OF INFILTRATIONS. [facility] DIALYS[facility] SITE FOR HD ACCESS. NO BLEEDING NOTED. NO FACIAL GRIMACING NOTED. ALL DUE MEDS GIVEN ORDERED. ALL SAFETY MEASURE IN PLACE. BED IN LOW POSITION AND LOCKED. SIDE RAILS X3, PLACE CALL LIGHT WITH IN REACH. ENDORSED TO PSYCHIATRIST NURSE FOR MERCEDES.
--- NOTE | 2021-11-10 19:40 | NUR ---
RN OPENING NOTES RECEIVED PATIENT IN BED, AWAKE, A/O X 2-3 AND VERBALLY RESPONSIVE. SETSWANA SPEAKING. ON 2L VIA N/C AND TOLERATED WELL. IV ACCESS ON LUIS A MIDLINE #18G INTACT. NO S/S OF INFILTRATIONS. DANIELA FISTULA INTACT AND PATENT. NO BLEEDING NOTES. BILATERAL RESTRAINT IN PLACE. NO C/O PAIN OR DISCOMFORT. NO ACUTE DISTRESS. ALL SAFETY MEASURES IN PLACE, BED IN LOWEST LOCKED POSITION, SIDE RAILS UP X3, PLACE CALL WITHIN REACH. WILL CONTINUE TO MONITOR
[2021-11-10 20:00] VITALS: BP 129/59
[2021-11-10] MEDS ORDERED: INSULIN GLARGINE, 100 UNIT/ML CARTRIDGE SQ SCH (22:00)
[2021-11-10] MEDS: MIRTAZAPINE 15 MG TABLET PO SCH (23:43)
[2021-11-10] MEDS: LATANOPROST EYE DROP 0.005% 2.5 ML BOTTLE OP SCH (23:43)
[2021-11-11] VITALS: BP 143/46
[2021-11-11 04:00] VITALS: BP 148/41
[2021-11-11 06:32] LABS: BASOPHILS % (AUTO) 0.3 % (0.0-2.0); EOSINOPHILS % (AUTO) 0.1 % (0.0-6.0); HEMATOCRIT 23 % (39-51); HEMOGLOBIN 7.9 g/dL (13.5-17.5); LYMPHOCYTES # (AUTO) 0.6 K/uL (0.8-4.8); LYMPHOCYTES % (AUTO) 6.2 % (20.0-44.0); MEAN CORPUSCULAR HGB CONC 34 g/dl (31.0-36.0); MEAN CORPUSCULAR VOLUME 98 fL (80-96); MONOCYTES % (AUTO) 10.3 % (2.0-12.0); NEUTROPHILS # (AUTO) 7.7 K/uL (1.8-8.9); NEUTROPHILS % (AUTO) 83.1 % (43.0-81.0); PLATELET COUNT (AUTO) 159 K/uL (150-450); RED BLOOD CELL COUNT(AUTO) 2.35 MIL/uL (4.5-6.0); WHITE BLOOD COUNT (AUTO) 9.3 K/uL (4.3-11.0)
--- NOTE | 2021-11-11 06:52 | NUR ---
RN CLOSING NOTES PATIENT IN BED, AWAKE, A/O X 2-3 AND VERBALLY RESPONSIVE. STATELESS SPEAKING. ON 2L VIA N/C, O2 SAT 100% AND TOLERATED WELL. IV ACCESS ON LUIS A MIDLINE #18G INTACT. NO S/S OF INFILTRATIONS. DANIELA FISTULA INTACT AND PATENT. NO BLEEDING NOTES. BILATERAL RESTRAINT IN PLACE. RELEASED FOR CIRCULATIONS. NO C/O PAIN OR DISCOMFORT. NO ACUTE DISTRESS. ALL DUE MEDS GIVEN PER ORDERED. ALL SAFETY MEASURES IN PLACE, BED IN LOWEST LOCKED POSITION, SIDE RAILS UP X3, PLACE CALL WITHIN REACH. WILL ENDORSE TO MORNING SHIFT NURSE.
[2021-11-11 07:06] LABS: CALCIUM, SERUM 7.5 mg/dL (8.5-10.1); CARBON DIOXIDE 24 mmol/L (21-32); CHLORIDE 93 mmol/L (98-107); GLUCOSE 160 mg/dL (74-106); POTASSIUM 4.2 mmol/L (3.5-5.1); SODIUM SERUM 130 mmol/L (136-145); UREA NITROGEN, BLOOD 68 mg/dL (7-18)
--- NOTE | 2021-11-11 07:20 | NUR ---
RN OPENING NOTES RECEIVED PATIENT IN BED, AWAKE, A/O X 2-3 AND VERBALLY RESPONSIVE. SERBIAN SPEAKING. ON 2L VIA N/C AND TOLERATED WELL. IV ACCESS ON LUIS A MIDLINE #18G INTACT. NO S/S OF INFILTRATIONS. DANIELA FISTULA INTACT AND PATENT. NO BLEEDING NOTED. BILATERAL RESTRAINT IN PLACE. NO C/O PAIN OR DISCOMFORT. NO ACUTE DISTRESS. ALL SAFETY MEASURES IN PLACE, BED IN LOWEST LOCKED POSITION, SIDE RAILS UP X3, PLACE CALL WITHIN REACH. WILL CONTINUE TO MONITOR THROUGHOUT SHIFT.
[2021-11-11] MEDS: PANTOPRAZOLE 40 MG TABLET.DR PO SCH (07:29)
[2021-11-11 08:00] VITALS: BP 145/51
--- NOTE | 2021-11-11 09:18 | NUR ---
RN NOTES HOLDING BP MEDS DUE TO HD TREATMENT. WILL GIVE BP MEDS POST HD.
[2021-11-11] MEDS: DONEPEZIL 5 MG TABLET PO SCH (09:20)
[2021-11-11] MEDS: ASPIRIN EC 81 MG TABLET.DR PO SCH (09:21)
[2021-11-11] MEDS: APIXABAN 2.5 MG TABLET PO SCH ×2 (09:21→17:02)
[2021-11-11] MEDS: DEXAMETHASONE SOD PHOSPHATE 10 MG/ML VIAL IV SCH (09:21)
[2021-11-11] MEDS: DORZOLAMIDE OPTH 2% 10 ML BOTTLE EACHEYE SCH ×2 (09:22→16:57)
[2021-11-11] MEDS: BRIMONIDINE TARTRATE OPHT SOLN 5 ML BOTTLE EACHEYE SCH ×2 (09:22→16:57)
[2021-11-11 09:43] LABS: CREATININE 7.8 mg/dL (0.6-1.3)
[2021-11-11 12:00] VITALS: BP 100/37
[2021-11-11] MEDS: hydrALAZINE HCL 50 MG TABLET PO SCH ×3 (12:58→16:56)
[2021-11-11] MEDS: LOSARTAN POTASSIUM 50 MG TABLET PO SCH (12:59)
[2021-11-11] MEDS: CARVEDILOL 12.5 MG TABLET PO SCH ×2 (12:59→16:56)
[2021-11-11] MEDS: AMLODIPINE BESYLATE 10 MG TABLET PO SCH (12:59)
[2021-11-11] MEDS: NITROGLYCERIN 30 GM TUBE TP SCH ×2 (13:00→20:55)
[2021-11-11] MEDS: INSULIN GLARGINE, 100 UNIT/ML CARTRIDGE SQ SCH ×2 (13:21→17:25)
--- NOTE | 2021-11-11 13:22 | NUR ---
RN NOTES HELD 1300 APRESOLINE. PT RECEIVED PREVIOUS DOSE AFTER HD APPROX AT 1230.
[2021-11-11 16:00] VITALS: BP 103/43
[2021-11-11] MEDS: ATORVASTATIN 10 MG TABLET PO SCH (17:01)
[2021-11-11] MEDS: CEFEPIME 1 GM in IV D5W 50 ML IV SCH (17:02)
--- NOTE | 2021-11-11 18:39 | NUR ---
RN CLOSING NOTES PATIENT IN BED RESTING, A/O X 2-3 AND VERBALLY RESPONSIVE. MALTESE SPEAKING. ON 2L VIA N/C, O2 SAT 100% AND TOLERATED WELL. IV ACCESS ON LUIS A MIDLINE #18G INTACT. NO S/S OF INFILTRATIONS. DANIELA FISTULA INTACT AND PATENT. NO BLEEDING NOTED. NO C/O PAIN OR DISCOMFORT. NO ACUTE DISTRESS. ALL DUE MEDS GIVEN PER ORDERED. ALL SAFETY MEASURES IN PLACE, BED IN LOWEST LOCKED POSITION, SIDE RAILS UP X3, CALL LIGHT WITHIN REACH. WILL ENDORSE TO ENERGY CONSERVATION ENGINEER NURSE.
--- NOTE | 2021-11-11 19:44 | NUR ---
RN OPENING NOTES RECEIVED PATIENT IN BED, AWAKE, A/O X 2-3 AND VERBALLY RESPONSIVE. UPPER SORBIAN SPEAKING. ON 2L VIA N/C AND TOLERATED WELL. IV ACCESS ON LUIS A MIDLINE #18G INTACT. NO S/S OF INFILTRATIONS. DANIELA FISTULA INTACT. NO BLEEDING NOTES. BILATERAL RESTRAINT IN PLACE. NO C/O PAIN OR DISCOMFORT. NO ACUTE DISTRESS. ALL SAFETY MEASURES IN PLACE, BED IN LOWEST LOCKED POSITION, SIDE RAILS UP X3, PLACE CALL WITHIN REACH. WILL CONTINUE TO MONITOR
[2021-11-11 20:00] VITALS: BP 110/54
[2021-11-11] MEDS: MIRTAZAPINE 15 MG TABLET PO SCH (21:14)
[2021-11-11] MEDS: LATANOPROST EYE DROP 0.005% 2.5 ML BOTTLE OP SCH (21:14)
[2021-11-12] VITALS (8 sets, daily range): BP systolic 92–152; BP diastolic 53–75
--- NOTE | 2021-11-12 06:40 | NUR ---
RN CLOSING NOTES PATIENT IN BED, AWAKE, A/O X 2-3 AND VERBALLY RESPONSIVE. TELUGU SPEAKING. ON 2L VIA N/C, O2 SAT 98% AND TOLERATED WELL. IV ACCESS ON LUIS A MIDLINE #18G INTACT AND PATENT. NO S/S OF INFILTRATIONS. DANIELA FISTULA INTACT. NO BLEEDING NOTES. BILATERAL RESTRAINT IN PLACE. RELEASED Q 2HOURS FOR CIRCULATION. NO C/O PAIN OR DISCOMFORT. NO ACUTE DISTRESS. ALL DUE MEDS GIVEN ORDERED AND PT TOLERATED WELL. ALL SAFETY MEASURES IN PLACE, BED IN LOWEST LOCKED POSITION, SIDE RAILS UP X3. PT TRANSFERRED TO [facility] IN [place] PER ACLS PROTOCOL. REPORT HAS BEEN GIVEN TO MARIMAR HAGER FROM [facility].
[2021-11-12 06:47] LABS: BASOPHILS # (AUTO) 0.1 K/uL (0.0-0.2); BASOPHILS % (AUTO) 0.9 % (0.0-2.0); HEMATOCRIT 23 % (39-51); HEMOGLOBIN 7.8 g/dL (13.5-17.5); LYMPHOCYTES % (AUTO) 9.1 % (20.0-44.0); MEAN CORPUSCULAR HGB CONC 33 g/dl (31.0-36.0); MEAN CORPUSCULAR VOLUME 96 fL (80-96); MONOCYTES % (AUTO) 8.7 % (2.0-12.0); NEUTROPHILS # (AUTO) 8.9 K/uL (1.8-8.9); NEUTROPHILS % (AUTO) 81.3 % (43.0-81.0); PLATELET COUNT (AUTO) 210 K/uL (150-450); RED BLOOD CELL COUNT(AUTO) 2.43 MIL/uL (4.5-6.0)
--- NOTE | 2021-11-12 06:57 | NUR ---
RN NOTE RECEIVED PT FROM [place] VIA BED TO RM.204-1. PT AWAKE, A/OX2, SINHALA-SPEAKING. HE DENIES ANY PAIN OR DISCOMFORT. RESPIRATIONS EVEN/UNLABORED. ON O2 @2LPM VIA NC. O2 SAT 97%. PT WITH DOE.SOFT WRIST RESTRAINTS. SKIN/CIRCULATIONS WNL. ON TELE MONITOR, READING V-PACING, HR 64. PT IN NO ACUTE DISTRESS. SAFETY MEASURES IN PLACE, BED IN LOWEST LOCKED POSITION, S/R UX2, CALL LIGHT WITHIN REACH. WILL ENDORSE TO NEXT SHIFT NURSE.
--- NOTE | 2021-11-12 07:30 | NUR ---
STUDIO MANAGER OPENING NOTES RECEIVED PATIENT IN BED, AWAKE, A/O X 2-3 AND VERBALLY RESPONSIVE. ARMENIAN SPEAKING. ON 2L VIA N/C AND TOLERATED WELL. IV ACCESS ON LUIS A MIDLINE #18G INTACT. NO S/S OF INFILTRATIONS. DANIELA FISTULA INTACT. NO BLEEDING NOTED. BILATERAL RESTRAINT IN PLACE. NO C/O PAIN OR DISCOMFORT. NO ACUTE DISTRESS. ALL SAFETY MEASURES IN PLACE, BED IN LOWEST LOCKED POSITION, SIDE RAILS UP X3, PLACE CALL WITHIN REACH. WILL CONTINUE TO MONITOR ACCORDINGLY. Addendum: 11/12/21 at 1100 by JAVIER SANCHEZ RN ON TELE MONITOR SHOWING V PACING HR AT 60
[2021-11-12 07:31] LABS: CALCIUM, SERUM 7.8 mg/dL (8.5-10.1); CARBON DIOXIDE 25 mmol/L (21-32); CHLORIDE 94 mmol/L (98-107); CREATININE 5.6 mg/dL (0.6-1.3); GLUCOSE 85 mg/dL (74-106); MAGNESIUM 2.3 mg/dL (1.8-2.4); PHOSPHORUS 4.4 mg/dL (2.5-4.9); POTASSIUM 5.2 mmol/L (3.5-5.1); SODIUM SERUM 130 mmol/L (136-145); UREA NITROGEN, BLOOD 45 mg/dL (7-18)
[2021-11-12] MEDS: PANTOPRAZOLE 40 MG TABLET.DR PO SCH (07:46)
[2021-11-12] MEDS: DONEPEZIL 5 MG TABLET PO SCH (08:44)
[2021-11-12] MEDS: ASPIRIN EC 81 MG TABLET.DR PO SCH (08:44)
[2021-11-12] MEDS: AMLODIPINE BESYLATE 10 MG TABLET PO SCH (08:46)
[2021-11-12] MEDS: LOSARTAN POTASSIUM 50 MG TABLET PO SCH (08:46)
[2021-11-12] MEDS: CARVEDILOL 12.5 MG TABLET PO SCH ×2 (08:46→17:00)
[2021-11-12] MEDS: DORZOLAMIDE OPTH 2% 10 ML BOTTLE EACHEYE SCH ×2 (08:47→17:38)
[2021-11-12] MEDS: BRIMONIDINE TARTRATE OPHT SOLN 5 ML BOTTLE EACHEYE SCH ×2 (08:47→17:38)
[2021-11-12] MEDS: hydrALAZINE HCL 50 MG TABLET PO SCH ×3 (08:47→17:00)
[2021-11-12] MEDS: APIXABAN 2.5 MG TABLET PO SCH ×2 (08:48→17:40)
[2021-11-12] MEDS: DEXAMETHASONE SOD PHOSPHATE 10 MG/ML VIAL IV SCH (08:48)
[2021-11-12] MEDS: INSULIN GLARGINE, 100 UNIT/ML CARTRIDGE SQ SCH ×2 (08:50→17:43)
[2021-11-12] MEDS: NITROGLYCERIN 30 GM TUBE TP SCH ×2 (08:51→20:42)
--- NOTE | 2021-11-12 10:15 | NUR ---
RN NOTES CALLED RADIOLOGY DEPARTMENT AND SPOKE TO OMER REGARDING PT'S CT OF THE [facility] WITH CONTRAST. PER OMER HE WILL CALL BACK ONCE CT IS AVAILABLE.
[2021-11-12] MEDS: ATORVASTATIN 10 MG TABLET PO SCH (17:38)
--- NOTE | 2021-11-12 18:31 | NUR ---
RN NOTES PATIENT PULLED OUT MIDLINE ACCESS. REINSERTED IV USING IV CATHETER G#20 ON PTS LEFT HAND, PATENT AND FLUSHES WELL.
--- NOTE | 2021-11-12 18:44 | NUR ---
MANAGER CONFIGURATION CLOSING NOTES PATIENT IN BED, AWAKE, A/O X 2-3 AND VERBALLY RESPONSIVE. KAZAKH SPEAKING. ON 2L VIA N/C AND TOLERATED WELL. IV ACCESS ON LEFT HAND G#20 PATENT AND INTACT. NO S/S OF INFILTRATIONS. DANIELA FISTULA INTACT. NO BLEEDING NOTED. BILATERAL RESTRAINT IN PLACE. NO C/O PAIN OR DISCOMFORT. NO ACUTE DISTRESS. ALL SAFETY MEASURES IN PLACE, BED IN LOWEST LOCKED POSITION, SIDE RAILS UP X3, CALL WITHIN REACH. FOR HD TODAY, FOR TRANSFUSION OF 1 UNIT PRBC DURING HD. ALL NEEDS ATTENDED AND MET. DUE MEDS GIVEN ORDERED. WILL ENDORSE TO ONCOMING SHIFT FOR MERCEDES.
[2021-11-12] MEDS: LATANOPROST EYE DROP 0.005% 2.5 ML BOTTLE OP SCH (20:43)
--- NOTE | 2021-11-12 20:50 | NUR ---
Patient started on HD.
--- NOTE | 2021-11-12 21:38 | NUR ---
Will give 2200 medication when HD is finished.
--- NOTE | 2021-11-12 22:08 | NUR ---
Got blood from blood bank. Double verified. HD nurse to give 1 unit pRBC with dialysis.
[2021-11-12] MEDS ORDERED: EPOETIN ALFA (10,000 UNIT) 10,000 UNIT/ML VIAL ONE (22:34)
[2021-11-12] MEDS: EPOETIN ALFA (4000 UNIT) 4,000 UNIT/ML VIAL IV SCH (23:01)
--- NOTE | 2021-11-13 01:01 | NUR ---
Hemodialysis ended. 2L taken off but 300mL blood transfusion.
[2021-11-13] MEDS: MIRTAZAPINE 15 MG TABLET PO SCH (01:34)
[2021-11-13 07:04] LABS: BASOPHILS # (AUTO) 0.1 K/uL (0.0-0.2); BASOPHILS % (AUTO) 0.5 % (0.0-2.0); EOSINOPHILS % (AUTO) 0.1 % (0.0-6.0); HEMATOCRIT 27 % (39-51); HEMOGLOBIN 9.2 g/dL (13.5-17.5); LYMPHOCYTES % (AUTO) 8.9 % (20.0-44.0); MEAN CORPUSCULAR HGB CONC 34 g/dl (31.0-36.0); MEAN CORPUSCULAR VOLUME 98 fL (80-96); MONOCYTES % (AUTO) 8.4 % (2.0-12.0); NEUTROPHILS # (AUTO) 9.3 K/uL (1.8-8.9); NEUTROPHILS % (AUTO) 82.1 % (43.0-81.0); PLATELET COUNT (AUTO) 181 K/uL (150-450); RED BLOOD CELL COUNT(AUTO) 2.72 MIL/uL (4.5-6.0); WHITE BLOOD COUNT (AUTO) 11.3 K/uL (4.3-11.0)
--- NOTE | 2021-11-13 07:19 | NUR ---
Patient is A&Ox2 yet agitated despite needs being met. Constantly trying to get out of bed and remove oxygen. Was able to remove restraint on one occasion and removed IV from Am shift. was able to replace with LUIS A IV #20G. circulation intact and restraints removed q2h for ROM, safety checks q15min. Was Afib on mobitor 80s-110s. In bed currently with no signs of distress. Addendum: 11/13/21 at 0726 by DILLON LEYVA RN Edit: Patient was SR with BBB and PACs on monitor, sometimes going into V-pacing.
[2021-11-13 07:21] LABS: CARBON DIOXIDE 28 mmol/L (21-32); CHLORIDE 93 mmol/L (98-107); CREATININE 3.8 mg/dL (0.6-1.3); GLUCOSE 60 mg/dL (74-106); MAGNESIUM 2.9 mg/dL (1.8-2.4); PHOSPHORUS 3.2 mg/dL (2.5-4.9); POTASSIUM 3.7 mmol/L (3.5-5.1); SODIUM SERUM 128 mmol/L (136-145); UREA NITROGEN, BLOOD 28 mg/dL (7-18)
--- NOTE | 2021-11-13 07:36 | NUR ---
SOLUTIONS DEVELOPER OPENING NOTES PATIENT IN BED, AWAKE. ALERT AND ORIENTED X 2 LUXEMBOURGER SPEAKING. NOT IN ANY APPARENT DISTRESS OR SOB. BREATHING IS EVEN AND UNLABORED. NO C/O PAIN OR DISCOMFORT. PT WITH NASAL CANNULA O2 SUPPLEMENTATION 2L SATURATING AT 96%. IV ACCESS ON LUIS A#20G AND DANIELA FISTULA INTACT AND PATENT. PT WITH EXTERNAL DAIRY HAND WITH SR READING WITH BBB. ALL SAFETY MEASURE MAINTAINED. HOB ELEVATED, BED LOCKED AND IN LOWEST POSITION WITH BED ALARM ON. CALL LIGHT WITHIN REACH. WILL CONTINUE TO MONITOR PATIENT THROUGHOUT SHIFT.
[2021-11-13 08:00] VITALS: BP 143/82
[2021-11-13] MEDS: DONEPEZIL 5 MG TABLET PO SCH (08:37)
[2021-11-13] MEDS: LOSARTAN POTASSIUM 50 MG TABLET PO SCH (08:37)
[2021-11-13] MEDS: CARVEDILOL 12.5 MG TABLET PO SCH ×2 (08:37→17:00)
[2021-11-13] MEDS: AMLODIPINE BESYLATE 10 MG TABLET PO SCH (08:38)
[2021-11-13] MEDS: ASPIRIN EC 81 MG TABLET.DR PO SCH (08:38)
[2021-11-13] MEDS: PANTOPRAZOLE 40 MG TABLET.DR PO SCH (08:38)
[2021-11-13] MEDS: hydrALAZINE HCL 50 MG TABLET PO SCH ×5 (08:38→17:15)
[2021-11-13] MEDS: DEXAMETHASONE SOD PHOSPHATE 10 MG/ML VIAL IV SCH (08:39)
[2021-11-13] MEDS: BRIMONIDINE TARTRATE OPHT SOLN 5 ML BOTTLE EACHEYE SCH ×2 (08:49→17:16)
[2021-11-13] MEDS: DORZOLAMIDE OPTH 2% 10 ML BOTTLE EACHEYE SCH ×2 (08:49→17:17)
[2021-11-13] MEDS: NITROGLYCERIN 30 GM TUBE TP SCH (08:50)
[2021-11-13] MEDS: INSULIN GLARGINE, 100 UNIT/ML CARTRIDGE SQ SCH ×2 (08:52→17:17)
[2021-11-13] MEDS: APIXABAN 2.5 MG TABLET PO SCH ×2 (08:57→17:10)
[2021-11-13] MEDS ORDERED: NITR0.4T48 SL (12:16)
[2021-11-13] MEDS ORDERED: ASPI-495 PO (12:16)
[2021-11-13] MEDS ORDERED: EPOETIN ALFA (4000 UNIT) 4,000 UNIT/ML VIAL IV PRN (14:00)
[2021-11-13 17:00] VITALS: BP 116/59
[2021-11-13] MEDS: ATORVASTATIN 10 MG TABLET PO SCH (17:09)
--- NOTE | 2021-11-13 18:18 | NUR ---
ARTIST COLOR SEPARATIONRECONCILIATION SPECIALIST NOTES PT WAS DISCHARGED WITH STABLE VITAL SIGNS. ALL BELONGINGS RETURNED. ID BAND AND IV ACCESS REMOVED. INSTRUCTIONS FOR DISCHARGE REVIEWED WITH PATIENTS DAUGHTER KALEB. PT WAS PICKED UP BY KALEB AND OTHER FAMILY MEMBER. OBSERVED PATIENT GET INTO PRIVATE CAR.
== END 2021-11-13 18:00 | disposition home or self-care (01) | DRG 871 ==
LOC: ER 21:45 → TRANSITION 11-04 04:41 → TELE1 11-04 06:11 → TELE2 11-12 06:28
PROVIDERS: ADMIT Student in an Organized Health Care Education/Training Program; ATTEND Nurse Practitioner Family
PROC: 5A1D70Z Performance of Urinary Filtration, Intermittent, Less than 6 Hours Per Day (ICD-10-PCS; 2021-11-05)
PROC: 05HA33Z Insertion of Infusion Device into Left Brachial Vein, Percutaneous Approach (ICD-10-PCS; principal; 2021-11-06)
PROC: 05HA33Z Insertion of Infusion Device into Left Brachial Vein, Percutaneous Approach (ICD-10-PCS; 2021-11-06)
PROC: 30233N1 Transfusion of Nonautologous Red Blood Cells into Peripheral Vein, Percutaneous Approach (ICD-10-PCS; 2021-11-12)
DX: A41.89 Other specified sepsis (principal); I21.4 Non-ST elevation (NSTEMI) myocardial infarction; J12.82 Pneumonia due to coronavirus disease 2019; N18.6 End stage renal disease; U07.1 COVID-19; J15.9 Unspecified bacterial pneumonia; J96.01 Acute respiratory failure with hypoxia; E44.0 Moderate protein-calorie malnutrition; I13.2 Hypertensive heart and chronic kidney disease with heart failure and with stage 5 chronic kidney disease, or end stage renal disease; G93.40 Encephalopathy, unspecified; T82.868A Thrombosis due to vascular prosthetic devices, implants and grafts, initial encounter; I25.10 Atherosclerotic heart disease of native coronary artery without angina pectoris; I50.9 Heart failure, unspecified; E11.22 Type 2 diabetes mellitus with diabetic chronic kidney disease; F03.90 Unspecified dementia, unspecified severity, without behavioral disturbance, psychotic disturbance, mood disturbance, and anxiety; F41.9 Anxiety disorder, unspecified; E78.5 Hyperlipidemia, unspecified; E11.65 Type 2 diabetes mellitus with hyperglycemia; E87.6 Hypokalemia; R74.01 Elevation of levels of liver transaminase levels; D64.9 Anemia, unspecified; D69.6 Thrombocytopenia, unspecified; Z95.0 Presence of cardiac pacemaker; Z99.2 Dependence on renal dialysis; Z86.73 Personal history of transient ischemic attack (TIA), and cerebral infarction without residual deficits; Y95 Nosocomial condition; I70.0 Atherosclerosis of aorta; D72.819 Decreased white blood cell count, unspecified; E88.09 Other disorders of plasma-protein metabolism, not elsewhere classified; F32.A Depression, unspecified; G93.89 Other specified disorders of brain; H40.9 Unspecified glaucoma; Y83.8 Other surgical procedures as the cause of abnormal reaction of the patient, or of later complication, without mention of misadventure at the time of the procedure; Y92.009 Unspecified place in unspecified non-institutional (private) residence as the place of occurrence of the external cause
CPT/HCPCS: 36410; 36415; 70450-TC; 71045-TC; 75574; 80048-TC; 80076-TC; 80202-TC; 83605-TC; 83735-TC; 84100-TC; 84443-TC; 84484-TC; 85025-TC; 85730-TC; 86706; 86850-TC; 87040-TC; 87081-TC; 87340; 90935-TC; 93307-TC; 93971-TC; 97110-TC; 97112-TC; 97116-TC; 97530-TC; C9803; G0378; J0692; J0885; J1100; J1642; J1644; J1815; J2405; J2543; J3370; J3490; J7030; J7040; J7050; J7060; P9016; Q9967

== ENCOUNTER 2023-09-16 10:00 | Day surgery (SDC) | payer MEDICARE, OTHER ==
[~2023-09-16 10:00] MED LIST: AMLO-213 PO; APIX2.5T PO; ASPI-495 PO; BIMA2.5D5 EACHEYE; BRIM5DRO3 EACHEYE; CARV12.52 PO; DONE5TAB34 PO; DORZ10DR10 EACHEYE; HYDR-4077 PO; INSU100I30 SQ; LOSA50TA39 PO; LOVA40TA2 PO; MIRT-91 PO; NITR0.4T48 SL
[2023-09-16 11:18] LABS: CALCIUM, SERUM 8.7 mg/dL (8.5-10.1); CARBON DIOXIDE 35 mmol/L (21-32); CHLORIDE 98 mmol/L (98-107); CREATININE 5.3 mg/dL (0.6-1.3); GLUCOSE 109 mg/dL (74-106); POTASSIUM 4.8 mmol/L (3.5-5.1); SODIUM SERUM 136 mmol/L (136-145); UREA NITROGEN, BLOOD 34 mg/dL (7-18)
[2023-09-16 11:36] LABS: INR 1.07 (0.91-1.10); PROTHROMBIN TIME 11.3 SECS (9.2-11.1)
[2023-09-16 11:51] LABS: BASOPHILS % (AUTO) 0.4 % (0.0-2.0); EOSINOPHILS % (AUTO) 0.7 % (0.0-6.0); HEMATOCRIT 34 % (39-51); HEMOGLOBIN 11.1 g/dL (13.5-17.5); LYMPHOCYTES # (AUTO) 0.9 K/uL (0.8-4.8); LYMPHOCYTES % (AUTO) 18.6 % (20.0-44.0); MEAN CORPUSCULAR HEMOGLOBIN 32 PG (26.0-33.0); MEAN CORPUSCULAR HGB CONC 33 g/dl (31.0-36.0); MEAN CORPUSCULAR VOLUME 98 fL (80-96); MONOCYTES # (AUTO) 0.7 K/uL (0.1-1.30); MONOCYTES % (AUTO) 14.5 % (2.0-12.0); NEUTROPHILS # (AUTO) 3.2 K/uL (1.8-8.9); NEUTROPHILS % (AUTO) 65.8 % (43.0-81.0); PLATELET COUNT (AUTO) 90 K/uL (150-450); RED BLOOD CELL COUNT(AUTO) 3.49 MIL/uL (4.5-6.0); RED CELL DISTRIBUTION WIDTH 13.7 % (11.5-15.0); WHITE BLOOD COUNT (AUTO) 4.9 K/uL (4.3-11.0)
[2023-09-16] MEDS ORDERED: LIDOCAINE HCL/MPF 1% 30 ML VIAL IJ ONE (12:42)
[2023-09-16] MEDS ORDERED: IODIXANOL 320MG/ML 50 ML IV ONE ×2 (12:49→13:46)
[2023-09-16] MEDS ORDERED: CLOPIDOGREL BISULFATE 300 MG TABLET ONE (13:52)
[2023-09-16 19:30] LABS: BAND % (MANUAL) 3 % (0.0-5.0); LYMPHOCYTES % (MANUAL) 8 % (16-48); MONOCYTES % (MANUAL) 23 % (0-11.0); NEUTROPHILS % (MANUAL) 66 (42-76); PLATELET ESTIMATE DECREASED
== END 2023-09-16 14:22 ==
LOC: CATHLAB 10:00
PROVIDERS: ATTEND Surgery Vascular Surgery
DX: E11.22 Type 2 diabetes mellitus with diabetic chronic kidney disease (principal); I87.1 Compression of vein; N18.6 End stage renal disease; I12.0 Hypertensive chronic kidney disease with stage 5 chronic kidney disease or end stage renal disease; Z99.2 Dependence on renal dialysis; Z83.3 Family history of diabetes mellitus; Z82.49 Family history of ischemic heart disease and other diseases of the circulatory system; Z98.890 Other specified postprocedural states; Z79.899 Other long term (current) drug therapy
CPT/HCPCS: 36902; 71045; 85025; 80048; 85610; 36415; J1644; C1725 ×2; J3490

== ENCOUNTER 2025-01-24 12:43 | Inpatient (IN) | payer MEDICARE, OTHER ==
[~2025-01-24] VITALS: Ht 167.6 cm; Wt 59.0 kg
[2025-01-24] MEDS ORDERED: GLUC1KIT IJ (13:42)
[2025-01-24] MEDS ORDERED: ASPI-1169 PO (13:42)
[2025-01-24] MEDS ORDERED: ASCO500T10 PO (13:42)
[2025-01-24] MEDS ORDERED: AMIN30LI2 PO (13:42)
[2025-01-24] MEDS ORDERED: MINE133E RC (13:42)
[2025-01-24] MEDS ORDERED: PANT40TA49 PO (13:42)
[2025-01-24] MEDS ORDERED: MUPI22OI7 TP (13:42)
[2025-01-24] MEDS ORDERED: BISA10SU11 RC (13:42)
[2025-01-24] MEDS ORDERED: COLL30OI TP (13:42)
[2025-01-24] MEDS ORDERED: CALC667C6 PO (13:42)
[2025-01-24] MEDS ORDERED: ATOR80TA PO (13:42)
[2025-01-24] MEDS ORDERED: INSU100V39 SQ (13:42)
[2025-01-24] MEDS ORDERED: MAGN400O6 PO (13:42)
[2025-01-24] MEDS ORDERED: NIFE-35 PO (13:42)
[2025-01-24] MEDS ORDERED: DEXT38GE12 PO (13:42)
[2025-01-24] MEDS ORDERED: ZINC220T4 PO (13:42)
[2025-01-24] MEDS ORDERED: LATA7.5D EACHEYE (13:42)
[2025-01-24] MEDS ORDERED: ACET325T53 PO ×2 (13:42)
[2025-01-24] MEDS ORDERED: CLOP75TA15 PO (13:42)
[2025-01-24] MEDS ORDERED: FOLI0.8T2 PO (13:42)
[2025-01-24 14:00] LABS: BASOPHILS % (AUTO) 0.6 % (0.0-2.0); EOSINOPHILS # (AUTO) 0.3 K/uL (0.0-0.7); EOSINOPHILS % (AUTO) 4.9 % (0.0-6.0); HEMATOCRIT 24 % (39-51); HEMOGLOBIN 8.1 g/dL (13.5-17.5); LYMPHOCYTES # (AUTO) 1.6 K/uL (0.8-4.8); LYMPHOCYTES % (AUTO) 22.9 % (20.0-44.0); MEAN CORPUSCULAR HEMOGLOBIN 31 PG (26.0-33.0); MEAN CORPUSCULAR HGB CONC 34 g/dl (31.0-36.0); MEAN CORPUSCULAR VOLUME 91 fL (80-96); MONOCYTES # (AUTO) 0.5 K/uL (0.1-1.30); MONOCYTES % (AUTO) 7.5 % (2.0-12.0); NEUTROPHILS # (AUTO) 4.4 K/uL (1.8-8.9); NEUTROPHILS % (AUTO) 64.1 % (43.0-81.0); PLATELET COUNT (AUTO) 190 K/uL (150-450); RED BLOOD CELL COUNT(AUTO) 2.62 MIL/uL (4.5-6.0); RED CELL DISTRIBUTION WIDTH 17.7 % (11.5-15.0); WHITE BLOOD COUNT (AUTO) 6.9 K/uL (4.3-11.0)
[2025-01-24 14:10] LABS: CALCIUM, SERUM 8.8 mg/dL (8.5-10.1); CREATININE 6.3 mg/dL (0.6-1.3)
[2025-01-24 14:14] LABS: INR 1.13 (0.91-1.10); PARTIAL THROMBOPLASTIN TIME 31.5 SEC (24.3-34.3); PROTHROMBIN TIME 11.9 SECS (9.2-11.1)
[2025-01-24] MEDS ORDERED: ACETAMINOPHEN 325 MG TABLET PO PRN (15:30)
[2025-01-24] MEDS: VIT B CMPLX 3/FA/VIT C/BIOTIN 1 TAB TABLET PO SCH (15:30)
[2025-01-24] MEDS ORDERED: BISACODYL SUPP (10 MG) 10 MG/SUPP.RECT SUPP.RECT RC PRN (15:30)
[2025-01-24] MEDS ORDERED: ONDANSETRON HCL/PF 4 MG/2 ML VIAL IVP PRN (15:30)
[2025-01-24] MEDS: DORZOLAMIDE OPTH 2% 10 ML BOTTLE EACHEYE SCH (17:00)
[2025-01-24] MEDS: NIFEdipine XL (30MG) 30 MG TAB PO SCH (17:02)
[2025-01-24] MEDS: PANTOPRAZOLE 40 MG TABLET.DR PO SCH (17:03)
[2025-01-24] MEDS: CALCIUM ACETATE 667 MG CAP/TAB PO SCH (17:03)
[2025-01-24] MEDS: BLOOD SUGAR DIAGNOSTIC 1 EACH STRIP IN SCH (18:51)
[2025-01-24 20:00] VITALS: BP 140/42; TEMP 98.4; O2SAT 93
[2025-01-24] MEDS: LATANOPROST EYE DROP 0.005% 2.5 ML BOTTLE EACHEYE SCH (22:00)
[2025-01-24] MEDS: INSULIN GLARGINE, 100 UNIT/ML CARTRIDGE SQ SCH (22:45)
[2025-01-24 23:41] VITALS: BP 97/55; TEMP 97.9; O2SAT 100
[2025-01-25] VITALS (8 sets, daily range): BP systolic 97–167; BP diastolic 52–68; TEMP 97–97.9; O2SAT 98–100
[2025-01-25] MEDS: ATORVASTATIN 40 MG TABLET PO SCH (00:11)
[2025-01-25] MEDS: DONEPEZIL 5 MG TABLET PO SCH (00:11)
[2025-01-25 07:19] LABS: CALCIUM, SERUM 8.9 mg/dL (8.5-10.1); CREATININE 4.4 mg/dL (0.6-1.3); MAGNESIUM 1.9 mg/dL (1.8-2.4); PHOSPHORUS 2.8 mg/dL (2.5-4.9)
[2025-01-25 07:24] LABS: BASOPHILS % (AUTO) 0.4 % (0.0-2.0); EOSINOPHILS # (AUTO) 0.3 K/uL (0.0-0.7); EOSINOPHILS % (AUTO) 4.7 % (0.0-6.0); HEMATOCRIT 25 % (39-51); HEMOGLOBIN 8.5 g/dL (13.5-17.5); LYMPHOCYTES # (AUTO) 1.3 K/uL (0.8-4.8); LYMPHOCYTES % (AUTO) 20.1 % (20.0-44.0); MEAN CORPUSCULAR HEMOGLOBIN 31 PG (26.0-33.0); MEAN CORPUSCULAR HGB CONC 34 g/dl (31.0-36.0); MEAN CORPUSCULAR VOLUME 92 fL (80-96); MONOCYTES # (AUTO) 0.5 K/uL (0.1-1.30); MONOCYTES % (AUTO) 8.2 % (2.0-12.0); NEUTROPHILS # (AUTO) 4.3 K/uL (1.8-8.9); NEUTROPHILS % (AUTO) 66.6 % (43.0-81.0); PLATELET COUNT (AUTO) 180 K/uL (150-450); RED BLOOD CELL COUNT(AUTO) 2.76 MIL/uL (4.5-6.0); RED CELL DISTRIBUTION WIDTH 17.9 % (11.5-15.0); WHITE BLOOD COUNT (AUTO) 6.4 K/uL (4.3-11.0)
[2025-01-25] MEDS: CLOPIDOGREL BISULFATE 75 MG TABLET PO SCH (09:48)
[2025-01-25] MEDS: ZINC SULFATE 220 MG CAPSULE PO SCH (09:56)
[2025-01-25] MEDS: ASCORBIC ACID 500 MG TABLET PO SCH (09:57)
[2025-01-25] MEDS: ASPIRIN 81 MG TAB.CHEW PO SCH (09:57)
[2025-01-25] MEDS: THERAHONEY GEL 1.5 OZ TUBE TP SCH (09:58)
[2025-01-25 11:31] LABS: POTASSIUM 3.6 mmol/L (3.5-5.1)
[2025-01-25] MEDS: INSULIN REGULAR, HUMAN 100 UNIT/ML 3 ML VIAL SQ PRN (11:47)
[2025-01-26 04:45] VITALS: BP 134/56; TEMP 97.9; O2SAT 98
[2025-01-26 06:51] LABS: BASOPHILS % (AUTO) 0.6 % (0.0-2.0); EOSINOPHILS # (AUTO) 0.3 K/uL (0.0-0.7); EOSINOPHILS % (AUTO) 4.2 % (0.0-6.0); HEMATOCRIT 22 % (39-51); HEMOGLOBIN 7.6 g/dL (13.5-17.5); LYMPHOCYTES # (AUTO) 1.4 K/uL (0.8-4.8); LYMPHOCYTES % (AUTO) 20.7 % (20.0-44.0); MEAN CORPUSCULAR HEMOGLOBIN 32 PG (26.0-33.0); MEAN CORPUSCULAR HGB CONC 35 g/dl (31.0-36.0); MEAN CORPUSCULAR VOLUME 91 fL (80-96); MONOCYTES # (AUTO) 0.7 K/uL (0.1-1.30); MONOCYTES % (AUTO) 10.2 % (2.0-12.0); NEUTROPHILS # (AUTO) 4.3 K/uL (1.8-8.9); NEUTROPHILS % (AUTO) 64.3 % (43.0-81.0); PLATELET COUNT (AUTO) 184 K/uL (150-450); RED BLOOD CELL COUNT(AUTO) 2.43 MIL/uL (4.5-6.0); RED CELL DISTRIBUTION WIDTH 17.9 % (11.5-15.0); WHITE BLOOD COUNT (AUTO) 6.6 K/uL (4.3-11.0)
[2025-01-26 06:54] LABS: CALCIUM, SERUM 8.8 mg/dL (8.5-10.1); CREATININE 5.7 mg/dL (0.6-1.3); MAGNESIUM 1.9 mg/dL (1.8-2.4); PHOSPHORUS 3.8 mg/dL (2.5-4.9); POTASSIUM 4.7 mmol/L (3.5-5.1)
[2025-01-26 08:39] VITALS: BP 122/48; TEMP 97.5; O2SAT 100
[2025-01-26] MEDS: MUPIROCIN OINT 2% 22 GM TUBE TP SCH (12:30)
[2025-01-26 16:23] VITALS: BP 110/60; TEMP 98.2; O2SAT 100
[2025-01-26 20:00] VITALS: BP 109/50; TEMP 97.7; O2SAT 99
[2025-01-27 06:34] LABS: BASOPHILS % (AUTO) 0.6 % (0.0-2.0); EOSINOPHILS # (AUTO) 0.2 K/uL (0.0-0.7); EOSINOPHILS % (AUTO) 3.8 % (0.0-6.0); HEMATOCRIT 23 % (39-51); HEMOGLOBIN 7.8 g/dL (13.5-17.5); LYMPHOCYTES # (AUTO) 1.3 K/uL (0.8-4.8); LYMPHOCYTES % (AUTO) 21.1 % (20.0-44.0); MEAN CORPUSCULAR HEMOGLOBIN 31 PG (26.0-33.0); MEAN CORPUSCULAR HGB CONC 34 g/dl (31.0-36.0); MEAN CORPUSCULAR VOLUME 92 fL (80-96); MONOCYTES # (AUTO) 0.5 K/uL (0.1-1.30); MONOCYTES % (AUTO) 8.7 % (2.0-12.0); NEUTROPHILS % (AUTO) 65.8 % (43.0-81.0); PLATELET COUNT (AUTO) 183 K/uL (150-450); RED BLOOD CELL COUNT(AUTO) 2.48 MIL/uL (4.5-6.0); RED CELL DISTRIBUTION WIDTH 17.9 % (11.5-15.0)
[2025-01-27 07:18] LABS: CREATININE 4.3 mg/dL (0.6-1.3); PHOSPHORUS 3.3 mg/dL (2.5-4.9)
[2025-01-27 08:00] VITALS: BP 160/67; TEMP 98.2; O2SAT 99
[2025-01-27 16:00] VITALS: BP 164/57; TEMP 98.2; O2SAT 96
[2025-01-27 20:00] VITALS: BP 174/56; TEMP 98.1; O2SAT 100
[2025-01-27 22:40] VITALS: BP 150/56; TEMP 98.1; O2SAT 98
[2025-01-27 22:49] VITALS: BP 140/90; TEMP 98.1; O2SAT 98
[2025-01-28 08:00] VITALS: BP 133/79; TEMP 97.5; O2SAT 100
[2025-01-28 16:00] VITALS: BP 160/56; TEMP 98.4; O2SAT 100
[2025-01-28 20:00] VITALS: BP_SYST 130; BP_SYST 160; BP_DIAS 56; BP_DIAS 80; TEMP 207.9; TEMP 97.7; O2SAT 96
[2025-01-29 07:00] VITALS: TEMP 97.5; O2SAT 92
[2025-01-29 07:02] LABS: BASOPHILS % (AUTO) 0.4 % (0.0-2.0); EOSINOPHILS # (AUTO) 0.2 K/uL (0.0-0.7); HEMATOCRIT 22 % (39-51); HEMOGLOBIN 7.7 g/dL (13.5-17.5); LYMPHOCYTES # (AUTO) 1.2 K/uL (0.8-4.8); LYMPHOCYTES % (AUTO) 17.3 % (20.0-44.0); MEAN CORPUSCULAR HEMOGLOBIN 32 PG (26.0-33.0); MEAN CORPUSCULAR HGB CONC 34 g/dl (31.0-36.0); MEAN CORPUSCULAR VOLUME 92 fL (80-96); MONOCYTES # (AUTO) 0.6 K/uL (0.1-1.30); NEUTROPHILS # (AUTO) 4.8 K/uL (1.8-8.9); NEUTROPHILS % (AUTO) 70.3 % (43.0-81.0); PLATELET COUNT (AUTO) 169 K/uL (150-450); RED BLOOD CELL COUNT(AUTO) 2.43 MIL/uL (4.5-6.0); RED CELL DISTRIBUTION WIDTH 17.3 % (11.5-15.0); WHITE BLOOD COUNT (AUTO) 6.8 K/uL (4.3-11.0)
[2025-01-29 07:06] LABS: CALCIUM, SERUM 8.6 mg/dL (8.5-10.1); CREATININE 4.5 mg/dL (0.6-1.3); MAGNESIUM 1.9 mg/dL (1.8-2.4); PHOSPHORUS 2.9 mg/dL (2.5-4.9); POTASSIUM 3.8 mmol/L (3.5-5.1)
[2025-01-29 16:00] VITALS: BP 144/62; TEMP 97.5; O2SAT 100
[2025-01-29 20:00] VITALS: BP 152/52; TEMP 97.5; O2SAT 100
[2025-01-30] VITALS (45 sets, daily range): BP systolic 61–167; BP diastolic 24–93; TEMP 95.9–97.9; O2SAT 54–100
[2025-01-30] MEDS ORDERED: LIDOCAINE 1% INJ 50 ML MDV IJ ONE (10:41)
[2025-01-30] MEDS ORDERED: BUPIVACAINE 0.5 % PF 150 MG/30 ML VIAL ONE (10:41)
[2025-01-30] MEDS ORDERED: LIDOCAINE 1%-EPI 1:100,000 20 ML VIAL ONE (10:41)
[2025-01-30] MEDS ORDERED: VANCOMYCIN 1 GM VIAL ONE (10:41)
[2025-01-30] MEDS ORDERED: BACITRACIN ZINC OINT (15 GM) 15 GM TUBE TP ONE (11:14)
[2025-01-30] MEDS ORDERED: EPINEPHRINE (1:1000) 1 MG/ML AMPUL IV ONE (14:19)
[2025-01-30] MEDS: CELLULOSE,OXIDIZED 1 EA PACK MC ONE (14:56)
[2025-01-30] MEDS: NOREPINEPHRINE 8 MG in IV D5W 242 ML IV PRN (15:02)
[2025-01-30 15:35] LABS: ABG OXYGEN SATURATION 36.4 % (94.0-98.0); ABG PCO2 56.3 mmHg (35.0-48.0); ABG PH 7.292 (7.350-7.450); ABG PO2 25.7 mmHg (83.0-108.0); ABG TOTAL HEMOGLOBIN 6.5 G/dL (13.5-17.5); COHb 0.3 % (0.5-1.5); MetHb 1.3 % (0.0-1.5); O2Hb 35.8 % (94.0-97.0); SITE, ABG Other
[2025-01-30 16:15] LABS: CALCIUM, SERUM 8.7 mg/dL (8.5-10.1); CREATININE 4.1 mg/dL (0.6-1.3); POTASSIUM 3.6 mmol/L (3.5-5.1)
[2025-01-30 16:31] LABS: BASOPHILS % (AUTO) 0.7 % (0.0-2.0); EOSINOPHILS # (AUTO) 0.1 K/uL (0.0-0.7); EOSINOPHILS % (AUTO) 1.3 % (0.0-6.0); LYMPHOCYTES # (AUTO) 1.8 K/uL (0.8-4.8); LYMPHOCYTES % (AUTO) 27.9 % (20.0-44.0); MEAN CORPUSCULAR HEMOGLOBIN 30 PG (26.0-33.0); MEAN CORPUSCULAR HGB CONC 32 g/dl (31.0-36.0); MEAN CORPUSCULAR VOLUME 94 fL (80-96); MONOCYTES # (AUTO) 0.4 K/uL (0.1-1.30); MONOCYTES % (AUTO) 6.6 % (2.0-12.0); NEUTROPHILS % (AUTO) 63.5 % (43.0-81.0); PLATELET COUNT (AUTO) 225 K/uL (150-450); RED BLOOD CELL COUNT(AUTO) 2.12 MIL/uL (4.5-6.0); RED CELL DISTRIBUTION WIDTH 17.9 % (11.5-15.0); WHITE BLOOD COUNT (AUTO) 6.3 K/uL (4.3-11.0)
[2025-01-30 16:34] LABS: HEMATOCRIT 20 % (39-51); HEMOGLOBIN 6.4 g/dL (13.5-17.5)
[2025-01-30 17:35] LABS: ANISOCYTOSIS 1+; EOSINOPHILS % (MANUAL) 2 % (0-4); LYMPHOCYTES % (MANUAL) 22 % (16-48); MONOCYTES % (MANUAL) 6 % (0-11.0); NEUTROPHILS % (MANUAL) 70 (42-76); PLATELET ESTIMATE ADEQUATE
[2025-01-31] VITALS (98 sets, daily range): BP systolic 48–153; BP diastolic 15–116; TEMP 97–97.6; O2SAT 95–100
[2025-01-31 05:10] LABS: BASOPHILS % (AUTO) 0.3 % (0.0-2.0); HEMATOCRIT 22 % (39-51); HEMOGLOBIN 7.5 g/dL (13.5-17.5); LYMPHOCYTES # (AUTO) 1.5 K/uL (0.8-4.8); LYMPHOCYTES % (AUTO) 8.9 % (20.0-44.0); MEAN CORPUSCULAR HEMOGLOBIN 30 PG (26.0-33.0); MEAN CORPUSCULAR HGB CONC 34 g/dl (31.0-36.0); MEAN CORPUSCULAR VOLUME 90 fL (80-96); MONOCYTES % (AUTO) 6.1 % (2.0-12.0); NEUTROPHILS # (AUTO) 14.2 K/uL (1.8-8.9); NEUTROPHILS % (AUTO) 84.7 % (43.0-81.0); PLATELET COUNT (AUTO) 199 K/uL (150-450); RED BLOOD CELL COUNT(AUTO) 2.47 MIL/uL (4.5-6.0); RED CELL DISTRIBUTION WIDTH 17.9 % (11.5-15.0); WHITE BLOOD COUNT (AUTO) 16.7 K/uL (4.3-11.0)
[2025-01-31 05:50] LABS: CALCIUM, SERUM 9.1 mg/dL (8.5-10.1); CREATININE 4.6 mg/dL (0.6-1.3); MAGNESIUM 2.1 mg/dL (1.8-2.4); PHOSPHORUS 3.4 mg/dL (2.5-4.9)
[2025-01-31] MEDS: IV NS 0.9% 500 ML IV ONE (09:05)
[2025-01-31] MEDS: EPOETIN ALFA (10,000 UNIT) 10,000 UNIT/ML VIAL SQ SCH (11:22)
[2025-02-01] VITALS (55 sets, daily range): BP systolic 54–175; BP diastolic 20–97; TEMP 98–98.8; O2SAT 99–100
[2025-02-01 07:40] LABS: RED BLOOD CELL COUNT(AUTO) 2.01 MIL/uL (4.5-6.0); WHITE BLOOD COUNT (AUTO) 9.6 K/uL (4.3-11.0)
[2025-02-01 07:41] LABS: BASOPHILS % (AUTO) 0.9 % (0.0-2.0); EOSINOPHILS % (AUTO) 1.1 % (0.0-6.0); LYMPHOCYTES % (AUTO) 13.3 % (20.0-44.0); MEAN CORPUSCULAR HEMOGLOBIN 31 PG (26.0-33.0); MEAN CORPUSCULAR HGB CONC 34 g/dl (31.0-36.0); MEAN CORPUSCULAR VOLUME 91 fL (80-96); MONOCYTES % (AUTO) 9.3 % (2.0-12.0); NEUTROPHILS % (AUTO) 75.4 % (43.0-81.0); PLATELET COUNT (AUTO) 159 K/uL (150-450)
[2025-02-01 07:43] LABS: HEMATOCRIT 18 % (39-51); HEMOGLOBIN 6.3 g/dL (13.5-17.5)
[2025-02-01 08:30] LABS: EOSINOPHILS % (MANUAL) 2 % (0-4); LYMPHOCYTES % (MANUAL) 13 % (16-48); MONOCYTES % (MANUAL) 7 % (0-11.0); NEUTROPHILS % (MANUAL) 78 (42-76)
[2025-02-01 08:31] LABS: ANISOCYTOSIS 1+; PLATELET ESTIMATE ADEQUATE
[2025-02-01 10:27] LABS: ALBUMIN 2.2 g/dL (3.4-5.0); BILIRUBIN,TOTAL 0.8 mg/dL (0.2-1.0); CALCIUM, SERUM 8.9 mg/dL (8.5-10.1); CREATININE 2.9 mg/dL (0.6-1.3); MAGNESIUM 2.1 mg/dL (1.8-2.4); PHOSPHORUS 1.8 mg/dL (2.5-4.9); POTASSIUM 3.3 mmol/L (3.5-5.1); TOTAL PROTEIN, SERUM 5.4 g/dL (6.4-8.2)
[2025-02-01 23:18] LABS: HEMOGLOBIN 8.1 g/dL (13.5-17.5)
[2025-02-02] VITALS (20 sets, daily range): BP systolic 119–195; BP diastolic 42–92; TEMP 97–98.2; O2SAT 97–100
[2025-02-02 04:46] LABS: BASOPHILS # (AUTO) 0.1 K/uL (0.0-0.2); BASOPHILS % (AUTO) 0.6 % (0.0-2.0); EOSINOPHILS # (AUTO) 0.2 K/uL (0.0-0.7); EOSINOPHILS % (AUTO) 1.8 % (0.0-6.0); HEMATOCRIT 23 % (39-51); HEMOGLOBIN 7.8 g/dL (13.5-17.5); LYMPHOCYTES # (AUTO) 1.7 K/uL (0.8-4.8); LYMPHOCYTES % (AUTO) 19.3 % (20.0-44.0); MEAN CORPUSCULAR HEMOGLOBIN 30 PG (26.0-33.0); MEAN CORPUSCULAR HGB CONC 34 g/dl (31.0-36.0); MEAN CORPUSCULAR VOLUME 90 fL (80-96); MONOCYTES # (AUTO) 0.7 K/uL (0.1-1.30); MONOCYTES % (AUTO) 7.8 % (2.0-12.0); NEUTROPHILS # (AUTO) 6.1 K/uL (1.8-8.9); NEUTROPHILS % (AUTO) 70.5 % (43.0-81.0); PLATELET COUNT (AUTO) 149 K/uL (150-450); RED BLOOD CELL COUNT(AUTO) 2.57 MIL/uL (4.5-6.0); RED CELL DISTRIBUTION WIDTH 17.2 % (11.5-15.0); WHITE BLOOD COUNT (AUTO) 8.6 K/uL (4.3-11.0)
[2025-02-02 05:18] LABS: CALCIUM, SERUM 8.8 mg/dL (8.5-10.1); CREATININE 4.3 mg/dL (0.6-1.3); PHOSPHORUS 1.6 mg/dL (2.5-4.9); POTASSIUM 3.2 mmol/L (3.5-5.1)
[2025-02-02] MEDS: DEXTROSE 50%-WATER 50 ML DISP.SYRIN IV PRN (07:30)
[2025-02-02 10:39] LABS: BASOPHILS % (AUTO) 0.3 % (0.0-2.0); EOSINOPHILS # (AUTO) 0.1 K/uL (0.0-0.7); EOSINOPHILS % (AUTO) 1.3 % (0.0-6.0); HEMATOCRIT 25 % (39-51); HEMOGLOBIN 8.5 g/dL (13.5-17.5); LYMPHOCYTES # (AUTO) 1.1 K/uL (0.8-4.8); LYMPHOCYTES % (AUTO) 13.7 % (20.0-44.0); MEAN CORPUSCULAR HEMOGLOBIN 30 PG (26.0-33.0); MEAN CORPUSCULAR HGB CONC 34 g/dl (31.0-36.0); MEAN CORPUSCULAR VOLUME 90 fL (80-96); MONOCYTES # (AUTO) 0.6 K/uL (0.1-1.30); NEUTROPHILS # (AUTO) 6.1 K/uL (1.8-8.9); NEUTROPHILS % (AUTO) 77.7 % (43.0-81.0); PLATELET COUNT (AUTO) 153 K/uL (150-450); RED CELL DISTRIBUTION WIDTH 17.3 % (11.5-15.0); WHITE BLOOD COUNT (AUTO) 7.9 K/uL (4.3-11.0)
[2025-02-02] MEDS: POTASSIUM CHLORIDE 20 MEQ TAB.PRT.SR PO ONE (10:47)
[2025-02-02] MEDS: VANCOMYCIN 1 GM in IV D5W 250ml IV ONE (18:00)
[2025-02-02] MEDS: CEFEPIME 1 GM in IV D5W 50 ML IV SCH (21:54)
[2025-02-02] MEDS ORDERED: VANCOMYCIN 500 MG VIAL ONE (22:47)
[2025-02-02] MEDS: VANCOMYCIN POST DIALYSIS 500MG IV PRN (22:54)
[2025-02-03] VITALS: BP 157/69; TEMP 97.5; O2SAT 97
[2025-02-03 04:00] VITALS: BP 122/64; TEMP 98.1; O2SAT 100
[2025-02-03 07:53] LABS: BASOPHILS % (AUTO) 0.2 % (0.0-2.0); EOSINOPHILS # (AUTO) 0.2 K/uL (0.0-0.7); EOSINOPHILS % (AUTO) 2.9 % (0.0-6.0); HEMATOCRIT 26 % (39-51); HEMOGLOBIN 8.9 g/dL (13.5-17.5); LYMPHOCYTES % (AUTO) 14.1 % (20.0-44.0); MEAN CORPUSCULAR HEMOGLOBIN 31 PG (26.0-33.0); MEAN CORPUSCULAR HGB CONC 34 g/dl (31.0-36.0); MEAN CORPUSCULAR VOLUME 90 fL (80-96); MONOCYTES # (AUTO) 0.6 K/uL (0.1-1.30); MONOCYTES % (AUTO) 7.9 % (2.0-12.0); NEUTROPHILS # (AUTO) 5.4 K/uL (1.8-8.9); NEUTROPHILS % (AUTO) 74.9 % (43.0-81.0); PLATELET COUNT (AUTO) 177 K/uL (150-450); WHITE BLOOD COUNT (AUTO) 7.3 K/uL (4.3-11.0)
[2025-02-03 08:00] VITALS: BP 130/57; TEMP 97.7; O2SAT 100
[2025-02-03 09:09] LABS: CALCIUM, SERUM 8.7 mg/dL (8.5-10.1); CREATININE 3.3 mg/dL (0.6-1.3); MAGNESIUM 2.1 mg/dL (1.8-2.4); PHOSPHORUS 1.5 mg/dL (2.5-4.9); POTASSIUM 3.8 mmol/L (3.5-5.1)
[2025-02-03 12:00] VITALS: BP 132/58; TEMP 97.5; O2SAT 100
[2025-02-03 16:00] VITALS: BP 144/59; TEMP 97.8; O2SAT 100
[2025-02-03 20:00] VITALS: BP 134/66; TEMP 98.1; O2SAT 100
[2025-02-04] VITALS: BP 136/57; TEMP 98.8; O2SAT 100
[2025-02-04 04:36] VITALS: BP 136/73; TEMP 98.5; O2SAT 100
[2025-02-04 06:25] LABS: BASOPHILS % (AUTO) 0.4 % (0.0-2.0); EOSINOPHILS # (AUTO) 0.1 K/uL (0.0-0.7); EOSINOPHILS % (AUTO) 1.7 % (0.0-6.0); HEMATOCRIT 24 % (39-51); HEMOGLOBIN 8.1 g/dL (13.5-17.5); LYMPHOCYTES # (AUTO) 0.9 K/uL (0.8-4.8); LYMPHOCYTES % (AUTO) 12.5 % (20.0-44.0); MEAN CORPUSCULAR HEMOGLOBIN 30 PG (26.0-33.0); MEAN CORPUSCULAR HGB CONC 34 g/dl (31.0-36.0); MEAN CORPUSCULAR VOLUME 90 fL (80-96); MONOCYTES # (AUTO) 0.8 K/uL (0.1-1.30); MONOCYTES % (AUTO) 10.1 % (2.0-12.0); NEUTROPHILS # (AUTO) 5.7 K/uL (1.8-8.9); NEUTROPHILS % (AUTO) 75.3 % (43.0-81.0); PLATELET COUNT (AUTO) 169 K/uL (150-450); RED BLOOD CELL COUNT(AUTO) 2.67 MIL/uL (4.5-6.0); RED CELL DISTRIBUTION WIDTH 17.4 % (11.5-15.0); WHITE BLOOD COUNT (AUTO) 7.6 K/uL (4.3-11.0)
[2025-02-04 06:44] LABS: CALCIUM, SERUM 8.9 mg/dL (8.5-10.1); CREATININE 4.5 mg/dL (0.6-1.3); MAGNESIUM 2.1 mg/dL (1.8-2.4); PHOSPHORUS 1.3 mg/dL (2.5-4.9); POTASSIUM 4.2 mmol/L (3.5-5.1)
[2025-02-04 08:00] VITALS: BP 127/49; TEMP 97.5; O2SAT 100
[2025-02-04 12:00] VITALS: BP 127/70; TEMP 98; O2SAT 100
[2025-02-04] MEDS ORDERED: CT SWABBABLE VALVE TRANS SET 1 EA INFUS.SET MC ONE (12:39)
[2025-02-04] MEDS ORDERED: IOHEXOL-300 100 ML VIAL IV ONE (12:39)
[2025-02-04] MEDS ORDERED: IV NS 0.9% 250 ML IV ONE (12:41)
[2025-02-04] MEDS ORDERED: CALCIUM ACETATE 667 MG CAP/TAB PO SCH (13:00)
[2025-02-04 16:00] VITALS: BP 145/70; TEMP 98; O2SAT 100
[2025-02-04] MEDS: VANCOMYCIN 1 GM in IV D5W 250ml IV ONE (19:59)
[2025-02-04 20:00] VITALS: BP 110/61; TEMP 97.9; O2SAT 100
[2025-02-05] VITALS: BP 102/54; TEMP 98.6; O2SAT 99
[2025-02-05 04:00] VITALS: BP 124/58; TEMP 98.1; O2SAT 99
[2025-02-05] MEDS ORDERED: VANCOMYCIN POST DIALYSIS 500MG IV PRN (06:00)
[2025-02-05 06:50] LABS: BASOPHILS # (AUTO) 0.1 K/uL (0.0-0.2); BASOPHILS % (AUTO) 0.8 % (0.0-2.0); EOSINOPHILS # (AUTO) 0.3 K/uL (0.0-0.7); EOSINOPHILS % (AUTO) 3.5 % (0.0-6.0); HEMATOCRIT 25 % (39-51); HEMOGLOBIN 8.6 g/dL (13.5-17.5); LYMPHOCYTES # (AUTO) 1.1 K/uL (0.8-4.8); LYMPHOCYTES % (AUTO) 13.9 % (20.0-44.0); MEAN CORPUSCULAR HEMOGLOBIN 32 PG (26.0-33.0); MEAN CORPUSCULAR HGB CONC 35 g/dl (31.0-36.0); MEAN CORPUSCULAR VOLUME 92 fL (80-96); MONOCYTES # (AUTO) 0.7 K/uL (0.1-1.30); MONOCYTES % (AUTO) 8.3 % (2.0-12.0); NEUTROPHILS # (AUTO) 5.9 K/uL (1.8-8.9); NEUTROPHILS % (AUTO) 73.5 % (43.0-81.0); PLATELET COUNT (AUTO) 182 K/uL (150-450); RED BLOOD CELL COUNT(AUTO) 2.69 MIL/uL (4.5-6.0); RED CELL DISTRIBUTION WIDTH 17.4 % (11.5-15.0); WHITE BLOOD COUNT (AUTO) 8.1 K/uL (4.3-11.0)
[2025-02-05 07:20] LABS: CREATININE 3.9 mg/dL (0.6-1.3); MAGNESIUM 2.1 mg/dL (1.8-2.4); PHOSPHORUS 1.9 mg/dL (2.5-4.9); POTASSIUM 5.1 mmol/L (3.5-5.1)
[2025-02-05 08:00] VITALS: BP 157/71; TEMP 97.7; O2SAT 100
[2025-02-05 16:00] VITALS: BP 122/57; TEMP 97.7; O2SAT 100
[2025-02-05] MEDS: K PHOS NEUTRAL 250 MG TABLET PO ONE (16:59)
[2025-02-05 20:00] VITALS: BP 154/63; TEMP 97.5; O2SAT 100
[2025-02-06 05:00] VITALS: BP 135/63; TEMP 97.5; O2SAT 100
[2025-02-06 06:07] LABS: HEPATITIS B SURFACE AB (QUAL) Reactive (.)
[2025-02-06 07:02] LABS: BASOPHILS % (AUTO) 0.4 % (0.0-2.0); EOSINOPHILS # (AUTO) 0.4 K/uL (0.0-0.7); EOSINOPHILS % (AUTO) 4.8 % (0.0-6.0); HEMATOCRIT 24 % (39-51); HEMOGLOBIN 8.2 g/dL (13.5-17.5); LYMPHOCYTES # (AUTO) 1.5 K/uL (0.8-4.8); LYMPHOCYTES % (AUTO) 17.7 % (20.0-44.0); MEAN CORPUSCULAR HEMOGLOBIN 31 PG (26.0-33.0); MEAN CORPUSCULAR HGB CONC 34 g/dl (31.0-36.0); MEAN CORPUSCULAR VOLUME 92 fL (80-96); MONOCYTES # (AUTO) 0.9 K/uL (0.1-1.30); MONOCYTES % (AUTO) 10.4 % (2.0-12.0); NEUTROPHILS # (AUTO) 5.5 K/uL (1.8-8.9); NEUTROPHILS % (AUTO) 66.7 % (43.0-81.0); PLATELET COUNT (AUTO) 195 K/uL (150-450); RED BLOOD CELL COUNT(AUTO) 2.66 MIL/uL (4.5-6.0); RED CELL DISTRIBUTION WIDTH 17.2 % (11.5-15.0); WHITE BLOOD COUNT (AUTO) 8.3 K/uL (4.3-11.0)
[2025-02-06 07:42] LABS: CALCIUM, SERUM 8.5 mg/dL (8.5-10.1); CREATININE 5.3 mg/dL (0.6-1.3); MAGNESIUM 1.9 mg/dL (1.8-2.4); PHOSPHORUS 2.4 mg/dL (2.5-4.9); POTASSIUM 4.5 mmol/L (3.5-5.1)
[2025-02-06 08:00] VITALS: BP 144/67; TEMP 97.5; O2SAT 100
[2025-02-06 16:00] VITALS: BP 122/55; TEMP 97.3; O2SAT 100
[2025-02-07] VITALS (13 sets, daily range): BP systolic 94–156; BP diastolic 46–96; TEMP 96.5–97.7; O2SAT 98–100
[2025-02-07] MEDS: IV D5/ 0.9% NACL 1,000 ML IV PRN (00:11)
[2025-02-07 06:43] LABS: BASOPHILS % (AUTO) 0.4 % (0.0-2.0); EOSINOPHILS # (AUTO) 0.4 K/uL (0.0-0.7); EOSINOPHILS % (AUTO) 5.4 % (0.0-6.0); HEMATOCRIT 25 % (39-51); HEMOGLOBIN 8.5 g/dL (13.5-17.5); LYMPHOCYTES # (AUTO) 1.1 K/uL (0.8-4.8); LYMPHOCYTES % (AUTO) 16.7 % (20.0-44.0); MEAN CORPUSCULAR HEMOGLOBIN 32 PG (26.0-33.0); MEAN CORPUSCULAR HGB CONC 35 g/dl (31.0-36.0); MEAN CORPUSCULAR VOLUME 92 fL (80-96); MONOCYTES # (AUTO) 0.7 K/uL (0.1-1.30); MONOCYTES % (AUTO) 10.3 % (2.0-12.0); NEUTROPHILS # (AUTO) 4.4 K/uL (1.8-8.9); NEUTROPHILS % (AUTO) 67.2 % (43.0-81.0); PLATELET COUNT (AUTO) 167 K/uL (150-450); RED BLOOD CELL COUNT(AUTO) 2.69 MIL/uL (4.5-6.0); RED CELL DISTRIBUTION WIDTH 17.6 % (11.5-15.0); WHITE BLOOD COUNT (AUTO) 6.6 K/uL (4.3-11.0)
[2025-02-07 07:11] LABS: CALCIUM, SERUM 8.5 mg/dL (8.5-10.1); CREATININE 4.7 mg/dL (0.6-1.3); POTASSIUM 4.4 mmol/L (3.5-5.1)
[2025-02-07 07:19] LABS: INR 1.15 (0.91-1.10); PROTHROMBIN TIME 12.1 SECS (9.2-11.1)
[2025-02-07] MEDS ORDERED: IODIXANOL 150 ML IV ONE (08:04)
[2025-02-07] MEDS ORDERED: LIDOCAINE HCL/MPF 1% 30 ML VIAL IJ ONE (09:15)
[2025-02-07] MEDS ORDERED: IODIXANOL 320MG/ML 50 ML IV ONE (10:44)
[2025-02-07] MEDS ORDERED: HEPARIN SODIUM, PORCINE 1,000 UNIT/ML VIAL ONE ×2 (10:49→11:02)
[2025-02-07] MEDS ORDERED: HEPARIN SODIUM, PORCINE 5000 UNITS/1 ML VIAL ONE (10:49)
[2025-02-07] MEDS ORDERED: IV SET PRIMARY PUMP SET 1 EA INFUS.SET MC ONE (10:57)
[2025-02-07] MEDS: CEFAZOLIN 2 GM in IV D5W 100 ML IV ONE (11:00)
[2025-02-08] VITALS: BP 119/66; TEMP 97.4; O2SAT 98
[2025-02-08 04:00] VITALS: BP 106/81; TEMP 97.7; O2SAT 100
[2025-02-08 07:13] LABS: BILIRUBIN,TOTAL 0.5 mg/dL (0.2-1.0); CALCIUM, SERUM 9.1 mg/dL (8.5-10.1); CREATININE 5.7 mg/dL (0.6-1.3); MAGNESIUM 2.1 mg/dL (1.8-2.4); PHOSPHORUS 3.4 mg/dL (2.5-4.9); POTASSIUM 4.8 mmol/L (3.5-5.1); TOTAL PROTEIN, SERUM 5.7 g/dL (6.4-8.2)
[2025-02-08 07:25] LABS: BASOPHILS % (AUTO) 0.7 % (0.0-2.0); EOSINOPHILS # (AUTO) 0.3 K/uL (0.0-0.7); EOSINOPHILS % (AUTO) 4.8 % (0.0-6.0); HEMATOCRIT 26 % (39-51); HEMOGLOBIN 8.9 g/dL (13.5-17.5); LYMPHOCYTES # (AUTO) 1.2 K/uL (0.8-4.8); LYMPHOCYTES % (AUTO) 16.4 % (20.0-44.0); MEAN CORPUSCULAR HEMOGLOBIN 32 PG (26.0-33.0); MEAN CORPUSCULAR HGB CONC 34 g/dl (31.0-36.0); MEAN CORPUSCULAR VOLUME 93 fL (80-96); MONOCYTES # (AUTO) 0.7 K/uL (0.1-1.30); MONOCYTES % (AUTO) 9.4 % (2.0-12.0); NEUTROPHILS % (AUTO) 68.7 % (43.0-81.0); PLATELET COUNT (AUTO) 169 K/uL (150-450); RED BLOOD CELL COUNT(AUTO) 2.81 MIL/uL (4.5-6.0); RED CELL DISTRIBUTION WIDTH 18.4 % (11.5-15.0); WHITE BLOOD COUNT (AUTO) 7.2 K/uL (4.3-11.0)
[2025-02-08 08:00] VITALS: BP 166/65; TEMP 97.9; O2SAT 100
[2025-02-08 16:00] VITALS: BP 137/61; TEMP 98.1; O2SAT 95
== END 2025-02-08 19:00 | DRG 628 ==
LOC: ER 12:45 → TELE 15:00 → MED 01-26 → ICU 01-30 14:13 → TELE1 02-02 18:07 → MEDSG1 02-05 09:33 → ICU 02-07 12:48 → MEDSG1 02-07 18:26
PROVIDERS: ADMIT Nurse Practitioner Acute Care
PROC: 5A1D70Z Performance of Urinary Filtration, Intermittent, Less than 6 Hours Per Day (ICD-10-PCS; 2025-01-24)
PROC: 30233N1 Transfusion of Nonautologous Red Blood Cells into Peripheral Vein, Percutaneous Approach (ICD-10-PCS; 2025-01-30)
PROC: 0QBL0ZZ Excision of Right Tarsal, Open Approach (ICD-10-PCS; principal; 2025-01-30 11:30)
PROC: 0HRMXK3 Replacement of Right Foot Skin with Nonautologous Tissue Substitute, Full Thickness, External Approach (ICD-10-PCS; 2025-01-30 11:30)
PROC: 047M3ZZ Dilation of Right Popliteal Artery, Percutaneous Approach (ICD-10-PCS; 2025-02-07)
PROC: 047C341 Dilation of Right Common Iliac Artery with Drug-eluting Intraluminal Device, using Drug-Coated Balloon, Percutaneous Approach (ICD-10-PCS; 2025-02-07)
PROC: 04CM3ZZ Extirpation of Matter from Right Popliteal Artery, Percutaneous Approach (ICD-10-PCS; 2025-02-07)
PROC: 047K3ZZ Dilation of Right Femoral Artery, Percutaneous Approach (ICD-10-PCS; 2025-02-07)
PROC: B410YZZ Fluoroscopy of Abdominal Aorta using Other Contrast (ICD-10-PCS; 2025-02-07)
PROC: B41FYZZ Fluoroscopy of Right Lower Extremity Arteries using Other Contrast (ICD-10-PCS; 2025-02-07)
PROC: B44LZZZ Ultrasonography of Femoral Artery (ICD-10-PCS; 2025-02-07)
DX: E87.70 Fluid overload, unspecified (principal); J96.01 Acute respiratory failure with hypoxia; N18.6 End stage renal disease; R57.8 Other shock; M86.671 Other chronic osteomyelitis, right ankle and foot; I12.0 Hypertensive chronic kidney disease with stage 5 chronic kidney disease or end stage renal disease; J81.1 Chronic pulmonary edema; R64 Cachexia; M48.56XA Collapsed vertebra, not elsewhere classified, lumbar region, initial encounter for fracture; Z99.2 Dependence on renal dialysis; I48.91 Unspecified atrial fibrillation; L97.519 Non-pressure chronic ulcer of other part of right foot with unspecified severity; E11.22 Type 2 diabetes mellitus with diabetic chronic kidney disease; E11.621 Type 2 diabetes mellitus with foot ulcer; E11.69 Type 2 diabetes mellitus with other specified complication; F03.90 Unspecified dementia, unspecified severity, without behavioral disturbance, psychotic disturbance, mood disturbance, and anxiety; I25.10 Atherosclerotic heart disease of native coronary artery without angina pectoris; E87.6 Hypokalemia; M89.8X9 Other specified disorders of bone, unspecified site; Z95.0 Presence of cardiac pacemaker; E78.5 Hyperlipidemia, unspecified; D64.9 Anemia, unspecified; Z79.82 Long term (current) use of aspirin; Z79.02 Long term (current) use of antithrombotics/antiplatelets; Z79.899 Other long term (current) drug therapy; Z79.4 Long term (current) use of insulin; D63.1 Anemia in chronic kidney disease; E11.51 Type 2 diabetes mellitus with diabetic peripheral angiopathy without gangrene; Z91.158 Patient's noncompliance with renal dialysis for other reason; Z89.431 Acquired absence of right foot; E86.1 Hypovolemia; M46.46 Discitis, unspecified, lumbar region
CPT/HCPCS: 36246; 36415; 37221; 37225; 71045-TC; 72132-TC; 73630-TC; 75625; 75710-TC; 80048-TC; 80053-TC; 80202-TC; 82962-TC; 83735-TC; 84100-TC; 85025-TC; 85027-TC; 85610-TC; 85652-TC; 85730-TC; 86140-TC; 86704; 86706; 86850-TC; 87040-TC; 87081-TC; 87102-TC; 87340; 90935-TC; 93926-TC; A2007; A4223; A6253; A6403; C1714; C1725; C1726; C1769; C1874; C1887; C1894; G0269; G0378; J0171; J0690; J0692; J0885; J1644; J1815; J2704; J3370; J3490; J7030; J7040; J7042; J7050; J7060; P9016; Q9967